=== PATIENT | female | born 1945 | race Caucasian/White ===

== ENCOUNTER 2016-11-02 12:31 | Inpatient (IN) ==
--- NOTE | 2016-11-02 19:50 | Internal Med History&Physical ---
Date of Encounter: 11/02/16 Time of Encounter: 20:36 Assessment and Plan (1) Physical deconditioning Current visit: Yes Status: Acute she is here for pt/ot/rt after her fall and left hip fracture (2) Atrial fibrillation with RVR Current visit: No Status: Acute she developed afib with rvr at [place] [facility]. she was put on a cardizem gtt and transitioned over to po cardizem. her rate has been controlled since. she saw cardio there who recommended asa for anticoagulation and out pt cardio f/u. (3) Intertrochanteric fracture of left hip Current visit: No Status: Acute she had an orif of the fracture on 10.29. she is here for rehab. hydrocodone for pain. she takes this at home for chronic pain Qualifiers: Encounter type: initial encounter Fracture type: closed Qualified Code(s) : S72.142A - Displaced intertrochanteric fracture of left femur, initial encounter for closed fracture (4) Hypertension Current visit: No Status: Chronic her home lisinopril was held when the cardizem was started. will continue to watch bp Qualifiers: Hypertension type: essential hypertension Qualified Code(s): I10 - Essential (primary) hypertension (5) Vitamin D deficiency Current visit: No Status: Chronic will continue home medication (6) Effusion, left knee Current visit: Yes Status: Acute she had an xray on 10/27 that showed narrowing of the medial compartment. discussed she is not a candidate for any intervention beyond rehab with the hip fracture. she could not tolerate an mri. will ice and do rehab for now. will consider further intervention as her hip heals. Internal Medicine - H&P: HPI Chief complaint: here for rehab Admitted From: Hospital to Hospital Transfer History of present illness: Ms. Marte is a 71 year old female who had a hip fracture after a fall 10/28/16. her dog got caught in the light cord and she got up too fast to help and fell. on 10/29/16 she had orif of the left hip intratrochanteric fracture. she also has left knee pain with swelling of the joint. post op she did develop a fib with rvr. she was placed on a cardizem gtt and transitioned over to po cardizem. cardiology was consulted and they recommended asa for anticoagulation with out pt cardio follow up. she has htn and the lisinopril that she was on prior was held after the cardizem was started. she felt her heart going fast when she had the a fib with rvr but has not felt that since she has a hx of chronic pain for which she is on hydrocodone 5/325 every 8 hours prior to the fracture. she had some constipation and had a stool softner today that helped. she has been dizzy in the past but was not dizzy with this fall. Past Med Surg Social Fam HX - Past Medical History Medical history: atrial fibrillation (new onset post op), GERD, hypertension, osteoporosis, other (vitamin d def) Psychiatric history: no psych history - Past Surgical History Surgical History: , orthopedic, other (lef hip orif 10/29/16, left tib fib orif 08/2013) - Social History Smoking Status: Never smoker Smokeless Tobacco Status: No Alcohol use: none Drug use: none - Family History Father Living Status: Cause of : cad Hx Family Cardiac Disorders: Yes (cad) Hx Family Respiratory Disorders: No Hx Family Cancer: Yes (throat) Hx Family GI Disorders: No Hx Family Endocrine Disorder: No Hx Family Neuromuscular Disorders: No Hx Family Neurologic Disorders: No Hx Family HEENT Disorders: No Hx Family Autoimmune Disorders: No Mother Hx Family Endocrine Disorder: Yes (dm2) Brother Hx Family Cancer: Yes (throat) Sister Hx Family Cardiac Disorders: Yes Internal Medicine - H&P: Meds Alendronate Sodium [Fosamax] 70 mg PO MADDEN 10/28/16 [History] Aspirin 81 mg PO DAILY tab.chew 11/01/16 [Rx] Cholecalciferol (D-3) [Vitamin D] 2,000 unit PO DAILY tablet 11/01/16 [Rx] Diltiazem CD (24hr) [Cardizem CD] 120 mg PO DAILY #0 cap.er.24h 11/01/16 [Rx] Docusate [Colace] 100 mg PO BID PRN #0 capsule 11/01/16 [Rx] Famotidine [Pepcid] 20 mg PO BID tablet 11/01/16 [Rx] HYDROcodone/Acet 5/325 mg [[place] 5-325 mg] 1 tab PO Q4HR PRN #30 tablet [Rx] Allergies codeine Adverse Reaction (Verified 10/28/16 11:28) Vomiting All Systems PM: A 10-system review of systems was performed and is negative for pertinent findings except as documented above in the HPI. - Constitutional Constitutional: falls, no chills, no fatigue, no fever(s) - EENT Eyes: no change in vision - Cardiovascular Cardiovascular ROS IM: other (racing wiht the afib, none since), no chest pain, no lightheadedness - Respiratory Respiratory: cough (just after surgery none since), no dyspnea, no wheezing - Gastrointestinal Gastrointestinal: constipation (did that was helped with the stool softner), no abdominal pain, no hematochezia, no loose stools, no melena, no nausea, no vomiting - Musculoskeletal Musculoskeletal ROS IM: joint swelling (in her left knee since her fall), tingling (of her left leg chronic since hr tib/fib fracture in 2012) - Integumentary Integumentary IM: no pruritus, no rash - Neurological Neurological ROS: no dizziness, no focal weakness - Constitutional Vitals: Temp BP Pulse Ox 98.4 F 123/71 94 L 11/02/16 16:46 11/02/16 16:46 11/02/16 16:46 General appearance: Present: A&O X 3, pleasant, no acute distress, answers questions appropriately - Head Head exam: Present: atraumatic, normocephalic - Neck Neck exam general surgery: Present: full ROM, supple, trachea midline. Absent: lymphadenopathy - Respiratory Respiratory exam: Present: CTAB - Cardiovascular Cardiovascular exam: Present: RRR, systolic murmur - GI/Abdominal GI/Abdominal exam: Present: normal bowel sounds, soft, no peritoneal signs. Absent: guarding, mass, tenderness - Extremities Exam Extremities exam: Present: normal capillary refill, warm. Absent: pedal edema - Expanded Lower Extremities Exam Knee exam: Present: ecchymosis, effusion - Incison Incision: Present: clean and dry (minimal d/c on the dressing) - Skin Skin exam: Present: dry, warm. Absent: rash - VTE Documentation of Mechanical Device: Graduated compression elastic hosiery
[2016-11-02] MEDS: Famotidine 20 MG TABLET PO SCH (20:57)
[2016-11-02] MEDS: *HR* HYDROcodone/Acet 5/325 mg TABLET PO PRN (20:57)
[2016-11-02 23:40] LABS: Bilirubin,Urine Negative (Negative); Blood,Urine Moderate (Negative); Clarity,Urine Cloudy (Clear); Color,Urine Yellow (Yellow); Glucose,Urine (UA) Normal (Normal); Ketones,Urine Negative (Negative); Leukocyte Esterase,Urine Trace (Negative); Nitrite,Urine Negative (Negative); Protein,Urine Negative (Neg-Trace); Specific Gravity,Urine 1.015 (1.010-1.025); Urobilinogen,Urine Normal (Normal)
[2016-11-02 23:46] LABS: Bacteria,Urine Many per hpf (None-Few); Squamous Epithelial Cell,Urine Few per lpf (None-Few); WBC,Urine 15-30 per hpf (0-3)
[2016-11-03] MEDS: *HR* Enoxaparin 40 MG/0.4 ML SYRINGE SQ SCH (05:30)
[2016-11-03] MEDS: *HR* HYDROcodone/Acet 5/325 mg TABLET PO PRN ×3 (05:36→22:05)
[2016-11-03 05:41] LABS: Basophils % 0.6 %; Eosinophils # 0.3 K/mcL (0.0-0.6); Eosinophils % 3.9 %; Hematocrit 32.9 % (35.3-44.9); Hemoglobin 10.6 g/dL (11.5-15.4); Immature Granulocytes % 0.3 % (0-4); Lymphocytes # 1.6 K/mcL (0.6-4.6); Lymphocytes % 23.2 %; Mean Corpuscular HGB Conc 32.2 g/dL (31.6-35.5); Mean Corpuscular Hemoglobin 25.9 pg (28.0-33.3); Mean Corpuscular Volume 80.4 fL (83.0-100.0); Mean Platelet Volume 9.2 fL (9.4-12.4); Monocytes # 0.5 K/mcL (0.0-1.3); Monocytes % 6.9 %; Neutrophils # 4.5 K/mcL (1.6-8.9); Platelet Count 327 K/mcL (140-400); Red Blood Count 4.09 M/mcL (3.82-4.97); Red Cell Distribution Width 13.7 % (11.5-14.5); Segmented Neutrophils % 65.1 %
[2016-11-03 05:45] LABS: INR 1.1; Prothrombin Time 11.6 Seconds (9.4-12.1)
[2016-11-03 05:48] LABS: Activated Partial Thrombo Time 26.3 Seconds (26.0-36.0)
[2016-11-03 05:55] LABS: BUN/Creatinine Ratio 15 (6-26); Blood Urea Nitrogen 9 mg/dL (7-20); Carbon Dioxide 25 mEq/L (19-29); Chloride 106 mEq/L (98-109); Glucose 99 mg/dL (70-99); Osmolality,Calculated 291 (280-300); Potassium 3.8 mEq/L (3.5-4.5); Sodium 141 mEq/L (136-145); eGFR For African Americans > 60 (> 60); eGFR For Non-African Americans > 60 (> 60)
[2016-11-03] MEDS: Diltiazem CD (24hr) 120 MG CAPSULE PO SCH (08:52)
[2016-11-03] MEDS: Famotidine 20 MG TABLET PO SCH ×2 (08:53→21:58)
[2016-11-03] MEDS ORDERED: Cholecalciferol (D-3) 1,000 UNIT TABLET PO SCH (09:00)
--- NOTE | 2016-11-03 15:49 | Physcial Medicine-Consult Note ---
Date of Encounter: 11/03/16 Time of Encounter: 15:45 Physical Medicine - AP (1) Intertrochanteric fracture of left hip Status: Acute Assessment and plan: 1. Left hip fracture: patient currently has barriers of fatigue and pain. Her primary barrier is her fatigue and pain. Patient will continue with PT/OT/ TR as tolerated to address gait, safety and ADLs. 2. Constipation: recommend suppository. 3. DVT prophylaxis: continue lovenox Code(s): S72.142A - Displaced intertrochanteric fracture of left femur, initial encounter for closed fracture SNOMED Code(s): 202739182 Physical Medicine - HPI - Data of Consult Consult date: 11/03/16 Requesting Physician: Alyse Inman, Primary Care Provider: Alyse Inman, - Consult Narrative Reason for consult: S/P left hip fracture History of present illness: Ms. Marte is a 71 year old female who sustained a fall with a resultant left intertrochanteric hip fracture. She is s/p IM nailing to the hip. She was stabilized and transferred for inpatient rehab. CC: Alyse Inman, Past Med Surg Social Fam HX - Past Medical History Medical history: atrial fibrillation (new onset post op), GERD, hypertension, osteoporosis, other (vitamin d def) Psychiatric history: no psych history - Past Surgical History Surgical History: , orthopedic, other (lef hip orif 10/29/16, left tib fib orif 08/2013) - Social History Smoking Status: Never smoker Smokeless Tobacco Status: No Alcohol use: none Drug use: none - Family History Father Living Status: Cause of : cad Hx Family Cardiac Disorders: Yes (cad) Hx Family Respiratory Disorders: No Hx Family Cancer: Yes (throat) Hx Family GI Disorders: No Hx Family Endocrine Disorder: No Hx Family Neuromuscular Disorders: No Hx Family Neurologic Disorders: No Hx Family HEENT Disorders: No Hx Family Autoimmune Disorders: No Mother Hx Family Endocrine Disorder: Yes (dm2) Brother Hx Family Cancer: Yes (throat) Sister Hx Family Cardiac Disorders: Yes Medications and Allergies Alendronate Sodium [Fosamax] 70 mg PO MADDEN 10/28/16 [History] Aspirin 81 mg PO DAILY tab.chew 11/01/16 [Rx] Cholecalciferol (D-3) [Vitamin D] 2,000 unit PO DAILY tablet 11/01/16 [Rx] Diltiazem CD (24hr) [Cardizem CD] 120 mg PO DAILY #0 cap.er.24h 11/01/16 [Rx] Docusate [Colace] 100 mg PO BID PRN #0 capsule 11/01/16 [Rx] Famotidine [Pepcid] 20 mg PO BID tablet 11/01/16 [Rx] HYDROcodone/Acet 5/325 mg [Christopher 5-325 mg] 1 tab PO Q4HR PRN #30 tablet [Rx] Allergies codeine Adverse Reaction (Verified 10/28/16 11:28) Vomiting - Constitutional Constitutional: Present: anorexia, fatigue - Cardiovascular Cardiovascular: Absent: chest pain, dyspnea - Respiratory Respiratory: Absent: dyspnea - Gastrointestinal Gastrointestinal: Present: abdominal pain, constipation - Genitourinary Genitourinary: Absent: urinary frequency, urinary incontinence - Musculoskeletal Musculoskeletal: Present: arthralgias Physical Medicine - Exam - Constitutional Vitals: Temp Pulse Resp BP Pulse Ox 98.5 F 90 16 137/76 98 11/03/16 11:43 11/03/16 12:57 11/03/16 12:57 11/03/16 12:57 11/03/16 12:57 - Head Head exam: Present: atraumatic, normal inspection - Respiratory Respiratory exam: Present: CTAB - Cardiovascular Cardiovascular exam: Present: RRR - GI/Abdominal GI/Abdominal exam: Present: normal bowel sounds, soft. Absent: tenderness - Extremities Exam Extremities exam: Absent: calf tenderness (left hip incision dressed and dry) Physical Medicine - Results - Labs CBC & Chem 7: 11/03/16 05:15 11/03/16 05:15 Labs: Short CBC 11/03/16 Range/Units 05:15 WBC 6.9 (4.3-11.1) K/mcL Hgb 10.6 L (11.5-15.4) g/dL Hct 32.9 L (35.3-44.9) % Plt Count 327 (140-400) K/mcL Neutrophils # 4.5 (1.6-8.9) K/mcL BMP 11/03/16 05:15 Sodium 141 Potassium 3.8 Chloride 106 Carbon Dioxide 25 BUN 9 Creatinine 0.62 Glucose 99 Calcium 9.0 Urine 11/02/16 Range/Units 23:00 Urine Color Yellow (Yellow) Urine Clarity Cloudy A (Clear) Urine pH 7.0 (5.0-8.0) pH Units Ur Specific [place] 1.015 (1.010-1.025) Urine Protein Negative (Neg-Trace) mg/dL Urine Glucose (UA) Normal (Normal) mg/dL Consult Discharge Plan - Plan Referrals: Alyse Inman MD [Primary Care Provider] -
[2016-11-04] MEDS: *HR* HYDROcodone/Acet 5/325 mg TABLET PO PRN ×4 (05:45→23:06)
[2016-11-04] MEDS: *HR* Enoxaparin 40 MG/0.4 ML SYRINGE SQ SCH (05:46)
[2016-11-04] MEDS: Famotidine 20 MG TABLET PO SCH ×2 (09:31→23:06)
[2016-11-04] MEDS: Diltiazem CD (24hr) 120 MG CAPSULE PO SCH (09:31)
--- NOTE | 2016-11-04 11:16 | Internal Med Progress Note ---
Date of Encounter: 11/04/16 Time of Encounter: 08:25 - Assessment and plan (1) Physical deconditioning Current Visit: Yes Status: Acute Assessment and plan: she is here for pt ot, rt, d/c when she meets their goals. she lives with 17 yo grandson (2) Atrial fibrillation with RVR Current Visit: No Status: Acute Assessment and plan: has been rate controlled on cardizem. will have her follow with cardio as outpt. cardio at [facility] recommended asa for anticoagulation (3) Intertrochanteric fracture of left hip Current Visit: No Status: Acute Assessment and plan: here for rehab Qualifiers: Qualified Code(s): S72.142A - Displaced intertrochanteric fracture of left femur, initial encounter for closed fracture (4) Hypertension Current Visit: No Status: Chronic Assessment and plan: stable continue medication. Qualifiers: Qualified Code(s): I10 - Essential (primary) hypertension (5) Vitamin D deficiency Current Visit: No Status: Chronic Assessment and plan: continue home medication (6) Effusion, left knee Current Visit: Yes Status: Acute Assessment and plan: she cannot tolerate an mri. will do rehab and ice and ivett hose. her xray was negative. - Subjective Interval history: her left knee bothers her more than the pain in the left hip. it still has an effusion. she was nauseated yesterday. none today, no emesis. bowels are ok. no sob, no cp, no palp no dizzy. no dysuria. she does have a gram neg gianfranco uti - Constitutional Vitals: Temp Pulse Resp BP Pulse Ox 97.5 F L 99 16 134/73 96 11/04/16 07:35 11/04/16 07:35 11/04/16 07:35 11/04/16 07:35 11/04/16 07:35 General appearance: Present: A&O X 3, pleasant, no acute distress, answers questions appropriately - Head Head exam: Present: atraumatic, normocephalic - Neck Neck exam general surgery: Present: supple, trachea midline. Absent: lymphadenopathy, tenderness - Respiratory Respiratory exam: Present: CTAB - Cardiovascular Cardiovascular exam: Present: RRR, systolic murmur - GI/Abdominal GI/Abdominal exam: Present: normal bowel sounds, soft, no peritoneal signs. Absent: distended, guarding, tenderness - Extremities Exam Extremities exam: Present: normal capillary refill (ivett hose), warm. Absent: pedal edema - Expanded Lower Extremities Exam Knee exam: Present: ecchymosis (on the left knee), effusion (on the left still) - Incison Incision: Present: clean and dry (minimal spots on the dressing. ) - Skin Skin exam: Present: dry, warm. Absent: rash Internal Medicine: Result - Labs CBC & Chem 7: 11/03/16 05:15 11/03/16 05:15 - ABG Interpretation ABG results: PT/INR, D-dimer PT 11.6 Seconds (9.4-12.1) 11/03/16 05:15 - VTE Documentation of Mechanical Device: Graduated compression elastic hosiery Consult Discharge Plan - Plan Referrals: Alyse Inman MD [Primary Care Provider] -
[2016-11-05] MEDS: *HR* Enoxaparin 40 MG/0.4 ML SYRINGE SQ SCH (06:11)
[2016-11-05] MEDS: *HR* HYDROcodone/Acet 5/325 mg TABLET PO PRN ×3 (06:11→18:27)
--- NOTE | 2016-11-05 08:28 | Internal Med Progress Note ---
Date of Encounter: 11/05/16 Time of Encounter: 08:28 - Assessment and plan (1) Physical deconditioning Current Visit: Yes Status: Acute Assessment and plan: she is here for pt ot, rt, d/c when she meets their goals. she lives with 17 yo grandson . she is getting sore from the walker (2) Atrial fibrillation with RVR Current Visit: No Status: Acute Assessment and plan: has been rate controlled on cardizem. will have her follow with cardio as outpt. cardio at [facility] recommended asa for anticoagulation (3) Intertrochanteric fracture of left hip Current Visit: No Status: Inactive Assessment and plan: here for rehab Qualifiers: Encounter type: initial encounter Fracture type: closed Qualified Code(s) : S72.142A - Displaced intertrochanteric fracture of left femur, initial encounter for closed fracture (4) Hypertension Current Visit: No Status: Chronic Assessment and plan: stable continue medication. Qualifiers: Hypertension type: essential hypertension Qualified Code(s): I10 - Essential (primary) hypertension (5) Vitamin D deficiency Current Visit: No Status: Chronic Assessment and plan: continue home medication (6) Effusion, left knee Current Visit: Yes Status: Acute Assessment and plan: she cannot tolerate an mri. will do rehab and ice and ivett hose. her xray was negative. it is better with the ivett hose (7) UTI (urinary tract infection) Current Visit: Yes Status: Acute Assessment and plan: on levaquin. e coli sensitive to it Qualifiers: Urinary tract infection type: acute cystitis Hematuria presence: with hematuria Qualified Code(s): N30.01 - Acute cystitis with hematuria - Subjective Interval history: her left knee bothers her more than the pain in the left hip. it still has an effusion. the pain is better with the thigh high ivett hose, no emesis. bowels are ok. no sob, no cp, no palp no dizzy. no dysuria. she does have a gram neg gianfranco uti, e coli. on levaquin. her arms and chest are getting sore from the walker. - Constitutional Vitals: Temp Pulse Resp BP Pulse Ox 98.6 F 84 16 118/74 95 11/05/16 07:00 11/05/16 07:00 11/05/16 07:00 11/05/16 07:00 11/05/16 07:00 General appearance: Present: A&O X 3, pleasant, no acute distress, answers questions appropriately - Head Head exam: Present: atraumatic, normocephalic - Neck Neck exam general surgery: Present: normal inspection, trachea midline. Absent : lymphadenopathy, tenderness - Respiratory Respiratory exam: Present: CTAB - Cardiovascular Cardiovascular exam: Present: RRR, +S1, +S2 - GI/Abdominal GI/Abdominal exam: Present: normal bowel sounds, soft, no peritoneal signs. Absent: distended, guarding, rebound, tenderness - Extremities Exam Extremities exam: Present: warm. Absent: pedal edema (ivett hose bilateral) - Incison Incision: Present: clean and dry (no change in the dressing drainage) - Skin Skin exam: Present: dry, warm. Absent: rash Internal Medicine: Result - Labs CBC & Chem 7: 11/03/16 05:15 11/03/16 05:15 - ABG Interpretation ABG results: PT/INR, D-dimer PT 11.6 Seconds (9.4-12.1) 11/03/16 05:15 - VTE Documentation of Mechanical Device: Graduated compression elastic hosiery Consult Discharge Plan - Plan Referrals: Alyse Inman MD [Primary Care Provider] -
[2016-11-05] MEDS: Diltiazem CD (24hr) 120 MG CAPSULE PO SCH (08:47)
[2016-11-05] MEDS: Famotidine 20 MG TABLET PO SCH ×2 (08:47→21:42)
[2016-11-06] MEDS: *HR* HYDROcodone/Acet 5/325 mg TABLET PO PRN ×4 (00:47→17:19)
[2016-11-06] MEDS: *HR* Enoxaparin 40 MG/0.4 ML SYRINGE SQ SCH (06:01)
[2016-11-06] MEDS: Famotidine 20 MG TABLET PO SCH ×2 (09:33→21:56)
[2016-11-06] MEDS: Diltiazem CD (24hr) 120 MG CAPSULE PO SCH (09:33)
--- NOTE | 2016-11-06 10:45 | Internal Med Progress Note ---
Date of Encounter: 11/06/16 Time of Encounter: 10:30 - Assessment and plan (1) Intertrochanteric fracture of left hip Current Visit: Yes Status: Acute Assessment and plan: At present doing well postop. Continue ERIC hose. Qualifiers: Encounter type: subsequent encounter Fracture type: closed Fracture healing: with routine healing Qualified Code(s): S72.142D - Displaced intertrochanteric fracture of left femur, subsequent encounter for closed fracture with routine healing (2) Effusion, left knee Current Visit: Yes Status: Acute Assessment and plan: Slowly improving. (3) Physical deconditioning Current Visit: Yes Status: Acute Assessment and plan: She is making slow progress with rehabilitation. She's had trauma at multiple sites with has limited her progress some. (4) UTI (urinary tract infection) Current Visit: Yes Status: Acute Assessment and plan: She grew Escherichia coli. Continue Levaquin. Qualifiers: Urinary tract infection type: acute cystitis Hematuria presence: with hematuria Qualified Code(s): N30.01 - Acute cystitis with hematuria (5) Atrial fibrillation with RVR Current Visit: No Status: Acute Assessment and plan: Rate is controlled at 81 bpm this morning. Rhythm seems regular today to my exam. She is not on telemetry and it does not seem to be indicated. (6) Hypertension Current Visit: No Status: Chronic Assessment and plan: At goal with blood pressure 111/66. Qualifiers: Hypertension type: essential hypertension Qualified Code(s): I10 - Essential (primary) hypertension - Time Spent With Patient 25 - 35 minutes - Subjective Interval history: She denies new complaints today. She continues to have chest soreness from her fall it interferes with her using the walker. She feels this is slowly improving. She denies shortness of breath, palpitations or chest discomfort. She continues to have left knee pain from her fall. She denies any discomfort on the left hip area where she had her surgery. - Constitutional Vitals: Temp Pulse Resp BP Pulse Ox 97.7 F 81 14 111/66 96 11/06/16 06:17 11/06/16 06:17 11/06/16 06:17 11/06/16 06:17 11/06/16 06:17 General appearance: Present: cooperative, A&O X 3, pleasant, no acute distress, answers questions appropriately - Respiratory Respiratory exam: Present: CTAB. Absent: accessory muscle use, rales, respiratory distress, rhonchi, wheezes - Cardiovascular Cardiovascular exam: Present: RRR, +S1, +S2, systolic murmur. Absent: diastolic murmur, gallop, rubs Additional comments: 6 systolic murmur S2 heard at the left lower sternal border. Today in the sitting position it is not loud. - Extremities Exam Extremities exam: Present: warm. Absent: calf tenderness, cyanotic, pedal edema Additional comments: She has ERIC hose it goes above her left knee and she says that's helped her discomfort. The therapist place some support tape over the patella she also feels that has decreased her discomfort. There is no warmth, redness or tenderness at this time. - Skin Skin exam: Present: dry, intact Additional comments: Dressing over the left lateral hip is dry and intact. There is no surrounding redness and no tenderness or fluctuance. Internal Medicine: Result - Labs CBC & Chem 7: 11/03/16 05:15 11/03/16 05:15 - ABG Interpretation ABG results: PT/INR, D-dimer PT 11.6 Seconds (9.4-12.1) 11/03/16 05:15 - VTE Documentation of Mechanical Device: Graduated compression elastic hosiery Consult Discharge Plan - Plan Referrals: Alyse Inman MD [Primary Care Provider] -
[2016-11-07] MEDS: *HR* HYDROcodone/Acet 5/325 mg TABLET PO PRN ×3 (00:18→19:29)
[2016-11-07] MEDS: *HR* Enoxaparin 40 MG/0.4 ML SYRINGE SQ SCH (06:19)
[2016-11-07] MEDS: Diltiazem CD (24hr) 120 MG CAPSULE PO SCH (08:25)
[2016-11-07] MEDS: Famotidine 20 MG TABLET PO SCH ×2 (08:25→19:28)
[2016-11-07] MEDS ORDERED: CHOLECALCIFEROL 50000 UNIT PO SCH (09:00)
--- NOTE | 2016-11-07 12:42 | Internal Med Progress Note ---
Date of Encounter: 11/07/16 Time of Encounter: 12:30 - Assessment and plan (1) Intertrochanteric fracture of left hip Current Visit: Yes Status: Acute Assessment and plan: Her incision looks good. She has no pain at the fracture site. Qualifiers: Encounter type: subsequent encounter Fracture type: closed Fracture healing: with routine healing Qualified Code(s): S72.142D - Displaced intertrochanteric fracture of left femur, subsequent encounter for closed fracture with routine healing (2) Effusion, left knee Current Visit: Yes Status: Acute Assessment and plan: Continued knee pain responding as above. She will have orthopedic follow-up for this. (3) Physical deconditioning Current Visit: Yes Status: Acute Assessment and plan: She continues with rehabilitation. Her chest soreness is limiting her walker use. To my exam today there is no bruising or other abnormality to the chest wall. (4) UTI (urinary tract infection) Current Visit: Yes Status: Acute Assessment and plan: She grew Escherichia coli. Continue Levaquin. Qualifiers: Urinary tract infection type: acute cystitis Hematuria presence: with hematuria Qualified Code(s): N30.01 - Acute cystitis with hematuria (5) Atrial fibrillation with RVR Current Visit: No Status: Acute Assessment and plan: Rate is controlled. (6) Hypertension Current Visit: No Status: Chronic Assessment and plan: Blood pressure is at goal at 115/61. Pulse is 85. Qualifiers: Hypertension type: essential hypertension Qualified Code(s): I10 - Essential (primary) hypertension - Time Spent With Patient 25 - 35 minutes - Subjective Interval history: She denies new complaints. She gets continued chest soreness when she uses her walker. She denies any trauma to the chest area with her fall, she says "I landed on my hip". She tells me about 3 years ago she broke her leg and could not her weight on it for 6 months, it was 2 years before she can get off the walker. She denies shortness of breath, palpitations or chest discomfort. She continues to have left knee pain which is relieved nicely with application of ice. She again denies any discomfort on the left hip area where she had her surgery. - Constitutional Vitals: Temp Pulse Resp BP Pulse Ox 98.1 F 85 18 115/61 95 11/07/16 06:50 11/07/16 06:50 11/07/16 06:50 11/07/16 06:50 11/07/16 06:50 General appearance: Present: cooperative, A&O X 3, pleasant, no acute distress, answers questions appropriately Exam: She is awake, alert, oriented and pleasant. - Respiratory Respiratory exam: Present: CTAB. Absent: accessory muscle use, rales, rhonchi, wheezes - Cardiovascular Cardiovascular exam: Present: RRR, +S1, +S2. Absent: diastolic murmur, gallop, rubs, systolic murmur - Extremities Exam Extremities exam: Present: warm, radial pulses palpable and symetrical. Absent : calf tenderness, cyanotic, pedal edema Additional comments: The dressing on her left greater trochanter is still clean and dry. There is no surrounding redness or inflammation. There is no swelling. She's applying ice to her left knee. There is no calf tenderness bilaterally and no swelling of the lower extremities. Internal Medicine: Result - Labs CBC & Chem 7: 11/03/16 05:15 11/03/16 05:15 - ABG Interpretation ABG results: PT/INR, D-dimer PT 11.6 Seconds (9.4-12.1) 11/03/16 05:15 - VTE Documentation of Mechanical Device: Graduated compression elastic hosiery Consult Discharge Plan - Plan Referrals: Alyse Inman MD [Primary Care Provider] -
[2016-11-08] MEDS: *HR* Enoxaparin 40 MG/0.4 ML SYRINGE SQ SCH (06:40)
[2016-11-08] MEDS: *HR* HYDROcodone/Acet 5/325 mg TABLET PO PRN ×3 (06:40→18:11)
[2016-11-08] MEDS: Famotidine 20 MG TABLET PO SCH ×2 (08:28→20:30)
[2016-11-08] MEDS: Diltiazem CD (24hr) 120 MG CAPSULE PO SCH (08:29)
[2016-11-09] MEDS: *HR* HYDROcodone/Acet 5/325 mg TABLET PO PRN ×3 (04:19→20:20)
[2016-11-09] MEDS: *HR* Enoxaparin 40 MG/0.4 ML SYRINGE SQ SCH (04:19)
[2016-11-09] MEDS: Diltiazem CD (24hr) 120 MG CAPSULE PO SCH (08:37)
[2016-11-09] MEDS: Famotidine 20 MG TABLET PO SCH ×2 (08:37→20:20)
--- NOTE | 2016-11-09 10:47 | Internal Med Progress Note ---
Date of Encounter: 11/09/16 Time of Encounter: 10:47 - Assessment and plan (1) Physical deconditioning Current Visit: Yes Status: Acute Assessment and plan: She continues with rehabilitation. Her chest soreness is limiting her walker use. will add ibuprofen to help with the muscle soreness (2) Atrial fibrillation with RVR Current Visit: No Status: Acute Assessment and plan: Rate is controlled.on asa for anticoag per cardio (3) Intertrochanteric fracture of left hip Current Visit: No Status: Inactive Assessment and plan: here for rehab Qualifiers: Encounter type: initial encounter Fracture type: closed Qualified Code(s) : S72.142A - Displaced intertrochanteric fracture of left femur, initial encounter for closed fracture (4) Hypertension Current Visit: No Status: Chronic Assessment and plan: stable on current medication Qualifiers: Hypertension type: essential hypertension Qualified Code(s): I10 - Essential (primary) hypertension (5) Vitamin D deficiency Current Visit: No Status: Chronic Assessment and plan: continue home medication (6) Effusion, left knee Current Visit: Yes Status: Acute Assessment and plan: Continued knee pain responding as above. She will have orthopedic follow-up for this as an outpatient (7) UTI (urinary tract infection) Current Visit: Yes Status: Acute Assessment and plan: finished medication Qualifiers: Urinary tract infection type: acute cystitis Hematuria presence: with hematuria Qualified Code(s): N30.01 - Acute cystitis with hematuria - Subjective Interval history: her left knee bothers her more than the pain in the left hip. it still has an effusion. the pain is better with the thigh high ivett hose, no emesis. bowels are ok. no sob, no cp, no palp no dizzy. no dysuria. her arms and chest are getting sore from the walker. it is limiting her progress. she used to take ibuprofen at home. will try this to see if it helps her arm and chest soreness. - Constitutional Vitals: Temp Pulse Resp BP Pulse Ox 98.0 F 84 16 110/69 94 L 11/09/16 07:05 11/09/16 07:05 11/09/16 07:05 11/09/16 07:05 11/09/16 07:05 General appearance: Present: cooperative, A&O X 3, pleasant, no acute distress, answers questions appropriately - Head Head exam: Present: atraumatic, normocephalic - Neck Neck exam general surgery: Present: supple, trachea midline. Absent: lymphadenopathy - Respiratory Respiratory exam: Present: CTAB - Cardiovascular Cardiovascular exam: Present: RRR, +S1, +S2 - GI/Abdominal GI/Abdominal exam: Present: normal bowel sounds, soft. Absent: guarding, mass, no peritoneal signs - Extremities Exam Extremities exam: Present: normal capillary refill (ivett hose on left knee with decreased effusion), warm. Absent: pedal edema - Incison Incision: Present: clean and dry (no change in the optifoam dressing), intact - Skin Skin exam: Present: dry, warm. Absent: rash Internal Medicine: Result - Labs CBC & Chem 7: 11/03/16 05:15 11/03/16 05:15 - ABG Interpretation ABG results: PT/INR, D-dimer PT 11.6 Seconds (9.4-12.1) 11/03/16 05:15 - VTE Documentation of Mechanical Device: Graduated compression elastic hosiery Consult Discharge Plan - Plan Referrals: Alyse Inman MD [Primary Care Provider] -
[2016-11-09] MEDS: Ibuprofen 600 MG TABLET PO SCH ×2 (12:34→17:51)
[2016-11-10 05:41] LABS: Basophils # 0.1 K/mcL (0.0-0.2); Eosinophils # 0.3 K/mcL (0.0-0.6); Eosinophils % 4.4 %; Hematocrit 32.4 % (35.3-44.9); Hemoglobin 10.6 g/dL (11.5-15.4); Immature Granulocytes % 0.2 % (0-4); Lymphocytes # 2.2 K/mcL (0.6-4.6); Lymphocytes % 37.9 %; Mean Corpuscular HGB Conc 32.7 g/dL (31.6-35.5); Mean Corpuscular Hemoglobin 26.8 pg (28.0-33.3); Mean Corpuscular Volume 81.8 fL (83.0-100.0); Mean Platelet Volume 8.7 fL (9.4-12.4); Monocytes # 0.5 K/mcL (0.0-1.3); Monocytes % 8.7 %; Neutrophils # 2.7 K/mcL (1.6-8.9); Platelet Count 505 K/mcL (140-400); Red Blood Count 3.96 M/mcL (3.82-4.97); Red Cell Distribution Width 14.7 % (11.5-14.5); Segmented Neutrophils % 47.8 %
[2016-11-10 05:51] LABS: BUN/Creatinine Ratio 17 (6-26); Blood Urea Nitrogen 11 mg/dL (7-20); Calcium 8.6 mg/dL (8.6-10.8); Carbon Dioxide 24 mEq/L (19-29); Chloride 110 mEq/L (98-109); Glucose 91 mg/dL (70-99); Osmolality,Calculated 289 (280-300); Potassium 3.9 mEq/L (3.5-4.5); Sodium 140 mEq/L (136-145); eGFR For African Americans > 60 (> 60); eGFR For Non-African Americans > 60 (> 60)
[2016-11-10] MEDS: Ibuprofen 600 MG TABLET PO SCH ×4 (06:53→17:46)
[2016-11-10] MEDS: *HR* Enoxaparin 40 MG/0.4 ML SYRINGE SQ SCH (06:53)
[2016-11-10] MEDS: Diltiazem CD (24hr) 120 MG CAPSULE PO SCH (08:00)
[2016-11-10] MEDS: Famotidine 20 MG TABLET PO SCH ×2 (08:00→21:05)
[2016-11-10] MEDS: *HR* HYDROcodone/Acet 5/325 mg TABLET PO PRN ×2 (11:10→21:05)
--- NOTE | 2016-11-10 13:20 | Internal Med Progress Note ---
Date of Encounter: 11/10/16 Time of Encounter: 14:02 - Assessment and plan (1) Physical deconditioning Current Visit: Yes Status: Acute Assessment and plan: She continues with rehabilitation. Her chest soreness is limiting her walker use. added ibuprofen to help with the muscle soreness. it has helped. will have her bring her wheelchair in from home to practice transfers. she is independent in her room (2) Atrial fibrillation with RVR Current Visit: No Status: Acute Assessment and plan: Rate is controlled.on asa for anticoag per cardio (3) Intertrochanteric fracture of left hip Current Visit: No Status: Inactive Assessment and plan: here for rehab Qualifiers: Encounter type: initial encounter Fracture type: closed Qualified Code(s) : S72.142A - Displaced intertrochanteric fracture of left femur, initial encounter for closed fracture (4) Hypertension Current Visit: No Status: Chronic Assessment and plan: stable on current medication Qualifiers: Hypertension type: essential hypertension Qualified Code(s): I10 - Essential (primary) hypertension (5) Vitamin D deficiency Current Visit: No Status: Chronic Assessment and plan: continue home medication (6) Effusion, left knee Current Visit: Yes Status: Acute Assessment and plan: Continued knee pain responding as above. She will have orthopedic follow-up for this as an outpatient (7) UTI (urinary tract infection) Current Visit: Yes Status: Resolved Assessment and plan: finished medication. levaquin d/c Qualifiers: Urinary tract infection type: acute cystitis Hematuria presence: with hematuria Qualified Code(s): N30.01 - Acute cystitis with hematuria - Subjective Interval history: her left knee bothers her more than the pain in the left hip. it still has an effusion. the pain is better with the thigh high ivett hose, no emesis. but was nauseatd. bowels are ok. no sob, no cp, no palp no dizzy. no dysuria. her arms and chest are getting sore from the walker. it is limiting her progress. the ibuprofen helps it. will. she will go home with the wheelchair. d/c frid - Constitutional Vitals: Temp Pulse Resp BP Pulse Ox 97.8 F 87 16 125/69 98 11/10/16 07:16 11/10/16 07:16 11/10/16 07:16 11/10/16 07:16 11/10/16 07:16 General appearance: Present: cooperative, A&O X 3, pleasant, no acute distress, answers questions appropriately - Head Head exam: Present: atraumatic, normocephalic - Neck Neck exam general surgery: Present: supple, trachea midline - Respiratory Respiratory exam: Present: CTAB - Cardiovascular Cardiovascular exam: Present: RRR, +S1, +S2 - GI/Abdominal GI/Abdominal exam: Present: normal bowel sounds, soft, no peritoneal signs. Absent: distended, rebound - Extremities Exam Extremities exam: Present: normal capillary refill. Absent: pedal edema (still wiht left knee effusion) - Incison Incision: Present: clean and dry, intact (with the dressing no change in the d/ c since admission) Internal Medicine: Result - Labs CBC & Chem 7: 11/10/16 05:30 11/10/16 05:30 Labs: Short CBC 11/10/16 Range/Units 05:30 WBC 5.7 (4.3-11.1) K/mcL Hgb 10.6 L (11.5-15.4) g/dL Hct 32.4 L (35.3-44.9) % Plt Count 505 H (140-400) K/mcL Neutrophils # 2.7 (1.6-8.9) K/mcL BMP 11/10/16 05:30 Sodium 140 Potassium 3.9 Chloride 110 H Carbon Dioxide 24 BUN 11 Creatinine 0.63 Glucose 91 Calcium 8.6 - ABG Interpretation ABG results: PT/INR, D-dimer PT 11.6 Seconds (9.4-12.1) 11/03/16 05:15 - VTE Documentation of Mechanical Device: Graduated compression elastic hosiery Consult Discharge Plan - Plan Referrals: Alyse Inman MD [Primary Care Provider] -
--- NOTE | 2016-11-10 14:06 | Physician Discharge Referral ---
Home Health/Hosp Referral Info Transfer to: Home Health - Diagnosis (1) Physical deconditioning Status: Acute (2) Atrial fibrillation with RVR Status: Acute (3) Intertrochanteric fracture of left hip Status: Inactive (4) Hypertension Status: Chronic (5) Vitamin D deficiency Status: Chronic (6) Effusion, left knee Status: Acute (7) UTI (urinary tract infection) Status: Resolved - Respiratory Orders Smoking Cessation: Smoking cessation has been advised. For more information, call the [place] Tobacco Quit Line at 5-938-QAYG-NOW. - Diet/Nutrition Diet/Nutrition Orders: Cardiac - Activity Activity Orders: Walker - Services Needed Following services are medically necessary services: Nursing, Home Health Aide, Physical Therapy, Occupational Therapy - Transfer Medications Prescriptions: Ibuprofen [Motrin] 600 mg PO Q6HR PRN #90 tablet PRN Reason: Pain Aspirin 325 mg PO BID #60 tablet Diltiazem CD (24hr) [Cardizem CD] 120 mg PO DAILY #30 cap.er.24h Home Medications: Alendronate Sodium [Fosamax] 70 mg PO SHELBY 10/28/16 [History] Aspirin 81 mg PO DAILY tab.chew 11/01/16 [Rx] Docusate [Colace] 100 mg PO BID PRN #0 capsule 11/01/16 [Rx] Famotidine [Pepcid] 20 mg PO BID tablet 11/01/16 [Rx] HYDROcodone/Acet 5/325 mg [Clyo 5-325 mg] 1 tab PO Q4HR PRN #30 tablet [Rx] Aspirin 325 mg PO BID #60 tablet 11/11/16 [Rx] Diltiazem CD (24hr) [Cardizem CD] 120 mg PO DAILY #30 cap.er.24h 11/11/16 [Rx] Ergocalciferol (VITAMIN D2) [Drisdol (50,000 Unit)] 50,000 unit PO Shelby@0900 capsule 11/11/16 [Rx] Ibuprofen [Motrin] 600 mg PO Q6HR PRN #90 tablet 11/11/16 [Rx] Allergies/Adverse Reactions: Allergies codeine Adverse Reaction (Verified 10/28/16 11:28) Vomiting Certification: Further, I certify that my clinical findings support that this patient is homebound (i.e. absences from home require considerable and taxing effort and are for medical reasons or jain services or infrequently or short duration when for other reasons) because: hip fracture needs wheelchair and walker for ambulation Homebound Reason: Patient requires assistance of a person or device to safely leave home (needs walker and wheelchair due the hip fracture and knee pain) Attestation: My signature below is to certify that this patient is under my care and that I, or nurse practitioner, or a physician's enrichment assistant working with me, has a face-to -face encounter with this patient.
--- NOTE | 2016-11-10 15:20 | Physical Med Progress Note ---
Date of Encounter: 11/10/16 Time of Encounter: 15:18 Physical Medicine-PN: Subj Interval history: PMR PCC note Ms. Marte refuses to use a walker. She relies on her wheelchair as her primary means of mobility. Patient is mod I for transfers. She will be discharged to home 11/12 with a walker and wheelchair. Plan for continued PT after discharge. - Constitutional Vitals: Vital Signs Temp Pulse Resp BP Pulse Ox 11/10/16 07:16 97.8 F 87 16 125/69 98 11/09/16 20:10 98.2 F 95 16 147/72 98 Intake and Output 11/09/16 11/10/16 11/10/16 23:59 07:59 15:59 Intake Total 220 / 220 200 / 200 560 / 560 Balance 220 / 220 200 / 200 560 / 560 Intake: Oral 220 / 220 200 / 200 560 / 560 Other: Meal Dinner Breakfast Percent of Meal Consumed 90% 65% # Voids 1 Physical Medicine-PN: Obj Data - Labs CBC & Chem 7: 11/10/16 05:30 11/10/16 05:30 Labs: Laboratory Results - last 24 hr 11/10/16 11/10/16 05:30 05:30 WBC 5.7 RBC 3.96 Hgb 10.6 L Hct 32.4 L MCV 81.8 L MCH 26.8 L MCHC 32.7 RDW 14.7 H Plt Count 505 H MPV 8.7 L Immature Gran % 0.2 Seg Neutrophils % 47.8 Lymphocytes % 37.9 Monocytes % 8.7 Eosinophils % 4.4 Basophils % 1.0 Neutrophils # 2.7 Lymphocytes # 2.2 Monocytes # 0.5 Eosinophils # 0.3 Basophils # 0.1 Sodium 140 Potassium 3.9 Chloride 110 H Carbon Dioxide 24 BUN 11 Creatinine 0.63 Est GFR ( Amer) > 60 Est GFR (Non-Af Amer) > 60 BUN/Creatinine Ratio 17 Glucose 91 Calculated Osmolality 289 Calcium 8.6 - ABG Interpretation ABG results: PT/INR, D-dimer PT 11.6 Seconds (9.4-12.1) 11/03/16 05:15 - VTE Documentation of Mechanical Device: Graduated compression elastic hosiery Consult Discharge Plan - Plan Referrals: Alyse Inman MD [Primary Care Provider] - Mulvany,Chantel L, PAC [Physician Substation Mechanic] - 11/12/16 8:45 am (Additional appointments - November 26, 2016 at 9:15 am and December 10, 2016 at 9:00 am at [facility] with Chantel Goodman) Claudia Talamantes, CUSTODIAL WORKER [Advanced Practice Nurse] - 11/18/16 5:40 pm
[2016-11-11] MEDS: Ibuprofen 600 MG TABLET PO SCH ×5 (04:43→23:18)
[2016-11-11] MEDS: *HR* Enoxaparin 40 MG/0.4 ML SYRINGE SQ SCH (05:45)
[2016-11-11] MEDS: Diltiazem CD (24hr) 120 MG CAPSULE PO SCH (08:48)
[2016-11-11] MEDS: Famotidine 20 MG TABLET PO SCH ×2 (08:48→21:03)
[2016-11-11] MEDS: *HR* HYDROcodone/Acet 5/325 mg TABLET PO PRN ×2 (08:51→21:03)
--- NOTE | 2016-11-11 18:39 | Discharge Summary ---
Date of Encounter: 11/11/16 Time of Encounter: 20:13 - Discharge Diagnosis (1) Physical deconditioning Priority: Primary Status: Acute Comments: She came from [place] after she had had a fall at home and had a left intertrochanteric hip fracture. This was surgically fixed. She was deconditioned and had difficulty ambulating and so she was sent here for rehabilitation. She did progress but had a lot of difficulty using her walker due to arm and chest soreness. She was started on ibuprofen that helped her chest soreness and she did take some steps with a walker but she did not do a lot of walker use while she was here. She plans on using her wheelchair at home. She does ambulate within her room in the wheelchair. At her goals for rehabilitation she was felt safe to be discharged home and she was discharged home in a stable condition she is to follow up with Sarah in the office and she is also to follow-up with orthopedic. Tuesday she is going straight there in the morning from here. (2) Atrial fibrillation with RVR Priority: Secondary Status: Acute Comments: While at [place] postop she had A. fib with RVR. She was started on a Cardizarea and she has remained rate controlled. She will get a follow-up with cardiology as an outpatient. Primary care provider Claudia Talamantes nurse practitioner has been notified and will set up till cardiology referral. (3) Intertrochanteric fracture of left hip Priority: Secondary Status: Inactive Comments: Her pain was controlled on the hydrocodone and ibuprofen. But her knee pain has really been limiting her rehabilitation and her chest soreness with a walker. Qualifiers: Encounter type: initial encounter Fracture type: closed Qualified Code(s) : S72.142A - Displaced intertrochanteric fracture of left femur, initial encounter for closed fracture (4) Hypertension Priority: Secondary Status: Chronic Comments: Been controlled on the Cardizem. Qualifiers: Hypertension type: essential hypertension Qualified Code(s): I10 - Essential (primary) hypertension (5) Vitamin D deficiency Priority: Secondary Status: Chronic Comments: Home Medication was continued (6) Effusion, left knee Priority: Secondary Status: Acute Comments: Her knee pain is actually been giving her more trouble than her hip pain. Her primary care provider Claudia Nevarez has been notified she will get her an outpatient referral for follow-up on this as well. She was not a candidate for intervention at this time so we do not do an MRI or anything past a knee x- ray which was negative for fracture. (7) UTI (urinary tract infection) Priority: Secondary Status: Resolved Comments: sHe grew Escherichia coli that was sensitive to Levaquin she completed a full course of this she came from [place] with this Qualifiers: Urinary tract infection type: acute cystitis Hematuria presence: with hematuria Qualified Code(s): N30.01 - Acute cystitis with hematuria - Discharge Medications Prescriptions: Ibuprofen [Motrin] 600 mg PO Q6HR PRN #90 tablet PRN Reason: Pain Aspirin 325 mg PO BID #60 tablet Diltiazem CD (24hr) [Cardizem CD] 120 mg PO DAILY #30 cap.er.24h Home Medications: Alendronate Sodium [Fosamax] 70 mg PO MADDEN 10/28/16 [History] Aspirin 81 mg PO DAILY tab.chew 11/01/16 [Rx] Docusate [Colace] 100 mg PO BID PRN #0 capsule 11/01/16 [Rx] Famotidine [Pepcid] 20 mg PO BID tablet 11/01/16 [Rx] HYDROcodone/Acet 5/325 mg [[place] 5-325 mg] 1 tab PO Q4HR PRN #30 tablet [Rx] Aspirin 325 mg PO BID #60 tablet 11/11/16 [Rx] Diltiazem CD (24hr) [Cardizem CD] 120 mg PO DAILY #30 cap.er.24h 11/11/16 [Rx] Ergocalciferol (VITAMIN D2) [Drisdol (50,000 Unit)] 50,000 unit PO Madden@0900 capsule 11/11/16 [Rx] Ibuprofen [Motrin] 600 mg PO Q6HR PRN #90 tablet 11/11/16 [Rx] Allergies/Adverse Reactions: Allergies codeine Adverse Reaction (Verified 10/28/16 11:28) Vomiting Date of admission: 11/02/16 15:39 Primary care physician: Alyse Inman, Consults: 11/02/16 16:22 Consult to Occupational Therapy [CONS] Routine Comment: Evaluate, develop and implement POC Consult to Physical Therapy [CONS] Routine Comment: Evaluate, develop and implement POC Consult to Recreational Therapy [CONS] Routine Comment: Evaluate, develop and implement POC Consult to Furnace Cooler [CONS] Routine Reason for SW Consult: d/c planning 11/02/16 16:25 Consult to Physical Medicine/Rehab [CONS] Routine Reason for Consult: therapy admit Call Completed: Yes - Patient Status Disposition: Home Health Service Condition: Good Functional capacity at discharge: wheelchair bound Overall status at discharge: patient is progressing back to baseline - Discharge Instructions Instructions: Atrial Fibrillation (DC), Urinary Tract Infection in Women (DC), Chronic Hypertension (DC) Follow Up With: Alyse Inman MD [Primary Care Provider] - Chantel Goodman PAC [Physician House Builder] - 11/12/16 8:45 am (Additional appointments - November 26, 2016 at 9:15 am and December 10, 2016 at 9:00 am at [facility] with Chantel Goodman) Claudia Talamantes CNP [Advanced Practice Nurse] - 11/18/16 5:40 pm - Diet and Activity Activity: ambulate only with your walker, as per physical therapy Diet: low fat, low cholesterol, low salt diet Interval History: sHe presented from a [facility] after she had a left intertrochanteric hip fracture that required surgical intervention. She came here for rehabilitation for deconditioning. She did progress to the point using a walker but developed a lot of arm and chest soreness which got better with ibuprofen but limited the use of the walker. She was mainly using a wheelchair she was independent ambulation with the wheelchair and walker in her room. Her rehabilitation goals and was considered safe to go home and so she was discharged her home environment with home health care. A lot of left knee pain she had a negative x -ray she was not a surgical candidate at this point time since she had just had surgery on her hip will get her an outpatient referral on this. She did develop A. fib with RVR at [place]. She has a memory controlled on by mouth Cardizem she was anticoagulated on 81 mg of aspirin a day she will be sent home on that as well. She had a UTI when she arrived from [place] was Escherichia coli she completed a full course of by mouth Levaquin. She did not develop a fever from this. hyper tension was stable she was discharged home in a stable condition Hospital course: Ms. Marte is a 71 year old female - Time Spent with Patient Total time spent providing and/or coordinating discharge services: - Constitutional Vitals: Temp Pulse Resp BP Pulse Ox 98.5 F 79 16 117/69 96 11/11/16 07:14 11/11/16 07:14 11/11/16 07:14 11/11/16 07:14 11/11/16 07:14 General appearance: Present: cooperative, A&O X 3, pleasant, no acute distress, answers questions appropriately - Head Head exam: Present: atraumatic, normocephalic - Neck Neck exam general surgery: Present: supple, trachea midline - Respiratory Respiratory exam: Present: CTAB - Cardiovascular Cardiovascular exam: Present: RRR, +S1, +S2 - GI/Abdominal GI/Abdominal exam: Present: normal bowel sounds, soft, no peritoneal signs. Absent: distended, guarding, tenderness - Extremities Exam Extremities exam: Present: joint swelling (but decreased in the left knee), warm. Absent: pedal edema - Incison Incision: Present: clean and dry, intact (dressing no change in d/c since admisssion) - Skin Skin exam: Present: dry, warm. Absent: rash - VTE Documentation of Mechanical Device: Graduated compression elastic hosiery
[2016-11-12] MEDS: Ibuprofen 600 MG TABLET PO SCH (05:47)
[2016-11-12] MEDS: *HR* Enoxaparin 40 MG/0.4 ML SYRINGE SQ SCH (05:47)
[2016-11-12 07:14] VITALS: BP 124/56
== END 2016-11-12 07:48 | disposition home health service (06) | DRG 560 ==
LOC: INPGRE 15:39
PROVIDERS: ADMIT Family Medicine; ATTEND Family Medicine

== ENCOUNTER 2017-01-14 16:38 | Inpatient (IN) ==
[2017-01-14] MEDS ORDERED: Acetaminophen 325 MG TABLET PO PRN (23:00)
[2017-01-15] MEDS: *HR* OxyCODONE Immed Rel 5 MG TABLET PO PRN ×4 (02:35→22:38)
[2017-01-15 03:36] LABS: Bilirubin,Urine Negative (Negative); Blood,Urine Trace-intact (Negative); Clarity,Urine Slightly Cloudy (Clear); Color,Urine Light Yellow (Yellow); Glucose,Urine (UA) Normal (Normal); Ketones,Urine Negative (Negative); Leukocyte Esterase,Urine Negative (Negative); Nitrite,Urine Negative (Negative); Protein,Urine Negative (Neg-Trace); Urobilinogen,Urine Normal (Normal)
[2017-01-15 03:37] LABS: Amorphous Sediment,Urine Few (Few); RBC,Urine 0-3 per hpf (0-3); Squamous Epithelial Cell,Urine Few per lpf (None-Few)
[2017-01-15 05:37] LABS: Basophils % 0.3 %; Eosinophils # 0.3 K/mcL (0.0-0.6); Eosinophils % 3.9 %; Hematocrit 26.3 % (35.3-44.9); Hemoglobin 8.8 g/dL (11.5-15.4); Immature Granulocytes % 0.4 % (0-4); Lymphocytes # 1.7 K/mcL (0.6-4.6); Lymphocytes % 21.5 %; Mean Corpuscular HGB Conc 33.5 g/dL (31.6-35.5); Mean Corpuscular Hemoglobin 27.6 pg (28.0-33.3); Mean Corpuscular Volume 82.4 fL (83.0-100.0); Mean Platelet Volume 9.1 fL (9.4-12.4); Monocytes # 0.7 K/mcL (0.0-1.3); Monocytes % 8.4 %; Neutrophils # 5.2 K/mcL (1.6-8.9); Platelet Count 226 K/mcL (140-400); Red Blood Count 3.19 M/mcL (3.82-4.97); Red Cell Distribution Width 14.4 % (11.5-14.5); Segmented Neutrophils % 65.5 %
[2017-01-15 05:39] LABS: INR 1.2; Prothrombin Time 12.7 Seconds (9.4-12.1)
[2017-01-15 05:41] LABS: Activated Partial Thrombo Time 26.2 Seconds (26.0-36.0)
[2017-01-15] MEDS: APIXABAN 5 MG TABLET PO SCH ×2 (07:58→21:18)
[2017-01-15] MEDS: Ascorbic Acid 500 MG TABLET PO SCH ×2 (07:58→16:58)
[2017-01-15] MEDS: Diltiazem CD (24hr) 180 MG CAPSULE PO SCH (07:58)
[2017-01-15] MEDS: *HR* Amiodarone 200 MG TABLET PO SCH (07:58)
[2017-01-15] MEDS: Aspirin Enteric Coated 81 MG Tablet PO SCH (07:58)
[2017-01-15] MEDS: Multivit/Ca/Min/Fe/FA 1 TAB TABLET PO SCH (07:58)
--- NOTE | 2017-01-15 11:04 | Internal Med History&Physical ---
Date of Encounter: 01/15/17 Time of Encounter: 10:54 Assessment and Plan (1) Status post left hip replacement Current visit: Yes Status: Acute She is here for rehabilitation due to PT OT RT discharge will be when she has met goals to be safe at home prior to coming here she was living at home with her grandson. That is the plans for her post discharge (2) A-fib Current visit: Yes Status: Acute She is on Cardizem 180 once a day and amiodarone. She is anticoagulated with eliquis she is has having some problems with anemia so we may have to reevaluate the by mouth anticoagulation. Currently rate controlled. Qualifiers: Atrial fibrillation type: paroxysmal Qualified Code(s): I48.0 - Paroxysmal atrial fibrillation (3) Acute blood loss anemia Current visit: No Status: Acute She received 2 units packed red blood cells done at [facility] her hemoglobin was 10 yesterday to clinic today what continue to follow this. May need to stop the oral anticoagulation for A. fib. (4) Hypertension Current visit: No Status: Chronic That is currently under control. Qualifiers: Hypertension type: essential hypertension Qualified Code(s): I10 - Essential (primary) hypertension (5) Physical deconditioning Current visit: No Status: Chronic Here for PT OT RT (6) Vitamin D deficiency Current visit: No Status: Chronic We will continue home medication (7) DVT prophylaxis Current visit: Yes Status: Acute eliquis aspirin ambulation Internal Medicine - H&P: HPI Chief complaint: here for rehab Admitted From: Hospital to Hospital Transfer Plans for Post Hospital Care: Home History of present illness: Ms. Marte is a 71 year old female Who underwent a left total hip replacement on 2016 after the hardware from her prior hip fracture was protruding into the hip joint. She is here for rehabilitation. While at [facility] postop she developed A. fib with RVR she was placed on a amiodarone drip as she was already on by mouth Cardizem. That was titrated yesterday she was tachycardic and her by mouth Cardizem was increased to 180 mg a day. Her heart rate has not been in the 100s since then. She continues to be on the amiodarone and Cardizem and eliquis was for anticoagulation. She did have some postop anemia down at [facility] and was transfused 2 units packed red blood cells. Her hemoglobin was 10 yesterday it is down to 8 today. We will have to keep an eye on this. She may need to have her by mouth anticoagulation stopped. She has not had a bowel movement since before surgery. She is requesting something for that. Her pain is a 5 is acceptable she does not want to change her pain medication regimen Past Med Surg Social Fam HX - Past Medical History Medical history: arthritis, atrial fibrillation, GERD, hypertension, osteoporosis, other (Vitamin D deficiency) Psychiatric history: no psych history - Past Surgical History Surgical History: , hip replacement ((01/10 2017 after protrusion of hardware from her prior ORIF), orthopedic, other (Left hip ORIF 10/29/2016, left tib-fib ORIF August 2013) - Social History Smoking Status: Never smoker Smokeless Tobacco Status: No Alcohol use: none Drug use: none - Family History Father Living Status: Hx Family Cardiac Disorders: Yes (cad) Hx Family Respiratory Disorders: No Hx Family Cancer: Yes (throat) Hx Family GI Disorders: No Hx Family Endocrine Disorder: No Hx Family Neuromuscular Disorders: No Hx Family Neurologic Disorders: No Hx Family HEENT Disorders: No Hx Family Autoimmune Disorders: No Mother Hx Family Endocrine Disorder: Yes (dm2) Brother Adopted: [place]: philip kaur Age: 65 Family Member Ethnicity: Non- Living Status: Still Living Hx Family Cardiac Disorders: No Hx Family Respiratory Disorders: No Hx Family Cancer: Yes (throat) Hx Family GI Disorders: No Hx Family Genitourinary Disorders: No Hx Family Endocrine Disorder: Yes Hx Family Musculoskeletal Disorders: No Hx Family Neuromuscular Disorders: No Hx Family Neurologic Disorders: No Hx Family HEENT Disorders: No Hx Family Autoimmune Disorders: No Hx Family Reproductive Disorders: No Hx Family Psychosocial Disorders: No Hx Family Medical Disorders: No Sister Adopted: [place]: Darlin Springer Age: 70 Family Member Ethnicity: Non- Living Status: Still Living Hx Family Cardiac Disorders: Yes Hx Family Respiratory Disorders: No Hx Family Cancer: No Hx Family GI Disorders: No Hx Family Genitourinary Disorders: No Hx Family Musculoskeletal Disorders: No Hx Family Neuromuscular Disorders: No Hx Family Neurologic Disorders: No Hx Family HEENT Disorders: No Hx Family Autoimmune Disorders: No Hx Family Reproductive Disorders: No Hx Family Psychosocial Disorders: No Hx Family Medical Disorders: No Internal Medicine - H&P: Meds Alendronate Sodium [Fosamax] 70 mg PO MADDEN 10/28/16 [History] Ergocalciferol (VITAMIN D2) [Drisdol (50,000 Unit)] 50,000 unit PO Madden@0900 capsule 11/11/16 [Rx] Aspirin 325 mg PO DAILY #21 tablet 01/09/17 [Rx] OxyCODONE Immed Rel [Roxicodone 5 MG] 5 - 10 mg PO Q6HR PRN #40 tablet 01/09/17 [Rx] Acetaminophen [Tylenol] 650 mg PO Q4HR PRN #0 tablet 01/14/17 [Rx] Amiodarone [Cordarone] 200 mg PO DAILY tablet 01/14/17 [Rx] Apixaban [Eliquis] 5 mg PO BID tablet 01/14/17 [Rx] Ascorbic Acid [Vitamin C] 500 mg PO BIDWM tablet 01/14/17 [Rx] Aspirin Enteric Coated [Aspirin EC] 81 mg PO DAILY tablet. 01/14/17 [Rx] Diltiazem CD (24hr) [Cardizem CD] 180 mg PO DAILY 01/14/17 [History] Docusate [Colace] 100 mg PO BID capsule 01/14/17 [Rx] Famotidine [Pepcid] 20 mg PO HS tablet 01/14/17 [Rx] Ferrous Sulfate 325 mg PO BIDWM tablet 01/14/17 [Rx] MOM Conc [MILK OF MAGNESIA conc] 5 ml PO HS PRN #0 [id number] 01/14/17 [Rx] Multivit/Ca/Min/Fe/FA [Thera M Plus] 1 tab PO DAILY tablet 01/14/17 [Rx] OxyCODONE Immed Rel [Roxicodone 5 MG] 5 - 10 mg PO Q6HR PRN #56 tablet 01/14/17 [Rx] OxyCODONE Immed Rel [Roxicodone 5 MG] 5 mg PO Q4HR PRN 7 Days 01/14/17 [Rx] Allergies codeine Adverse Reaction (Verified 01/10/17 14:04) Vomiting All Systems PM: A 10-system review of systems was performed and is negative for pertinent findings except as documented above in the HPI. - Constitutional Constitutional: fatigue, no chills, no fever(s), no night sweats, no weakness ( focal, she does have generalized) - EENT Eyes: no change in vision Nose, mouth and throat: no nasal congestion, no nasal discharge - Cardiovascular Cardiovascular ROS IM: lightheadedness (when she first stands up), palpitations , no dyspnea - Respiratory Respiratory: no cough, no dyspnea, no wheezing - Gastrointestinal Gastrointestinal: constipation, nausea, no diarrhea, no hematemesis, no hematochezia, no loose stools, no melena, no vomiting - Genitourinary Genitourinary: no dysuria, no hematuria, no urinary frequency - Integumentary Integumentary IM: no pruritus, no rash - Neurological Neurological ROS: no loss of vision, no numbness - Constitutional Vitals: Temp Pulse Resp BP Pulse Ox 97.1 F L 67 18 107/59 97 01/15/17 06:47 01/15/17 06:47 01/15/17 06:47 01/15/17 06:47 01/15/17 06:47 General appearance: Present: A&O X 3, pleasant, no acute distress - Head Head exam: Present: atraumatic, normocephalic - Eye Eye exam: Present: EOMI, PERRL - Neck Neck exam general surgery: Present: supple. Absent: lymphadenopathy, tenderness , trachea midline - Respiratory Respiratory exam: Present: CTAB - Cardiovascular Cardiovascular exam: Present: RRR, systolic murmur - GI/Abdominal GI/Abdominal exam: Present: normal bowel sounds, soft, no peritoneal signs. Absent: distended, mass, rebound, tenderness - Extremities Exam Extremities exam: Present: normal capillary refill, warm. Absent: pedal edema - Incison Incision: Present: intact (With honeycomb dressing), serous (Very mild) - Skin Skin exam: Present: dry, intact, warm. Absent: rash Internal Med - H&P Results - Labs CBC & Chem 7: 01/15/17 05:15 Labs: Short CBC 01/15/17 Range/Units 05:15 WBC 7.9 (4.3-11.1) K/mcL Hgb 8.8 L (11.5-15.4) g/dL Hct 26.3 L (35.3-44.9) % Plt Count 226 (140-400) K/mcL Neutrophils # 5.2 (1.6-8.9) K/mcL Urine 04/15/17 Range/Units 02:30 Urine Color Light Yellow (Yellow) Urine Clarity Slightly Cloudy A (Clear) Urine pH 7.0 (5.0-8.0) pH Units Ur Specific [place] 1.010 (1.010-1.025) Urine Protein Negative (Neg-Trace) mg/dL Urine Glucose (UA) Normal (Normal) mg/dL
[2017-01-15] MEDS ORDERED: Lactulose Oral Soln 20 GM/30 ML UDC PO PRN (11:29)
[2017-01-15] MEDS: Famotidine 20 MG TABLET PO SCH ×2 (14:37→21:18)
[2017-01-15 15:38] LABS: BUN/Creatinine Ratio 12 (6-26); Blood Urea Nitrogen 6 mg/dL (7-20); Carbon Dioxide 29 mEq/L (19-29); Chloride 103 mEq/L (98-109); Glucose 103 mg/dL (70-99); Osmolality,Calculated 286 (280-300); Potassium 3.1 mEq/L (3.5-4.5); Sodium 139 mEq/L (136-145); eGFR For African Americans > 60 (> 60); eGFR For Non-African Americans > 60 (> 60)
[2017-01-15] MEDS: MOM Conc 10 ML UD.LIQ PO PRN (16:58)
[2017-01-15] MEDS ORDERED: Famotidine 20 MG TABLET PO SCH ×2 (21:00)
[2017-01-16 05:49] LABS: Basophils % 0.2 %; Eosinophils # 0.1 K/mcL (0.0-0.6); Eosinophils % 1.2 %; Hematocrit 27.7 % (35.3-44.9); Hemoglobin 9.1 g/dL (11.5-15.4); Immature Granulocytes % 0.4 % (0-4); Lymphocytes # 1.5 K/mcL (0.6-4.6); Lymphocytes % 13.4 %; Mean Corpuscular HGB Conc 32.9 g/dL (31.6-35.5); Mean Corpuscular Hemoglobin 27.1 pg (28.0-33.3); Mean Corpuscular Volume 82.4 fL (83.0-100.0); Mean Platelet Volume 9.1 fL (9.4-12.4); Monocytes # 0.8 K/mcL (0.0-1.3); Monocytes % 7.1 %; Neutrophils # 8.7 K/mcL (1.6-8.9); Platelet Count 293 K/mcL (140-400); Red Blood Count 3.36 M/mcL (3.82-4.97); Red Cell Distribution Width 14.6 % (11.5-14.5); Segmented Neutrophils % 77.7 %
[2017-01-16 05:59] LABS: BUN/Creatinine Ratio 9 (6-26); Carbon Dioxide 28 mEq/L (19-29); Chloride 102 mEq/L (98-109); Glucose 116 mg/dL (70-99); Osmolality,Calculated 284 (280-300); Potassium 3.1 mEq/L (3.5-4.5); Sodium 138 mEq/L (136-145); eGFR For African Americans > 60 (> 60); eGFR For Non-African Americans > 60 (> 60)
[2017-01-16 06:00] LABS: Blood Urea Nitrogen 5 mg/dL (7-20)
[2017-01-16] MEDS: *HR* OxyCODONE Immed Rel 5 MG TABLET PO PRN ×3 (06:32→22:02)
[2017-01-16] MEDS: Multivit/Ca/Min/Fe/FA 1 TAB TABLET PO SCH (09:31)
[2017-01-16] MEDS: *HR* Amiodarone 200 MG TABLET PO SCH (09:31)
[2017-01-16] MEDS: Diltiazem CD (24hr) 180 MG CAPSULE PO SCH (09:31)
[2017-01-16] MEDS: Aspirin Enteric Coated 81 MG Tablet PO SCH (09:32)
[2017-01-16] MEDS: Famotidine 20 MG TABLET PO SCH ×2 (09:32→18:22)
[2017-01-16] MEDS: APIXABAN 5 MG TABLET PO SCH ×2 (09:47→21:59)
[2017-01-16] MEDS: Ascorbic Acid 500 MG TABLET PO SCH ×2 (09:47→18:07)
--- NOTE | 2017-01-16 13:21 | Internal Med Progress Note ---
Date of Encounter: 01/16/17 Time of Encounter: 13:19 - Assessment and plan (1) Status post left hip replacement Current Visit: Yes Status: Acute Assessment and plan: here for PT/ RT/OT. d/c per rehab goals (2) A-fib Current Visit: Yes Status: Acute Assessment and plan: has been rate controlled on amiodarone, diltiazem. anticoagulated on eliquis Qualifiers: Atrial fibrillation type: paroxysmal Qualified Code(s): I48.0 - Paroxysmal atrial fibrillation (3) Acute blood loss anemia Current Visit: No Status: Acute Assessment and plan: stable. s/p 2 units prbc. continue the po iron (4) Hypertension Current Visit: No Status: Chronic Assessment and plan: stable continue current meds Qualifiers: Hypertension type: essential hypertension Qualified Code(s): I10 - Essential (primary) hypertension (5) Physical deconditioning Current Visit: No Status: Chronic Assessment and plan: continue PT/OT/RT (6) Vitamin D deficiency Current Visit: No Status: Chronic Assessment and plan: continue home med (7) DVT prophylaxis Current Visit: Yes Status: Acute Assessment and plan: eliquis and ambulation - Subjective Interval history: she is tired today. pain acceptable but sore. she is still dizzy when first getting up. no n/v, 3 stools since the lactulose. no cp, no sob, no wheeze, no palp - Constitutional Vitals: Temp Pulse Resp BP Pulse Ox 96.7 F L 88 18 89/52 94 01/16/17 07:23 01/16/17 07:23 01/16/17 07:23 01/16/17 07:23 01/16/17 07:23 General appearance: Present: A&O X 3, pleasant, no acute distress - Head Head exam: Present: atraumatic, normocephalic - Neck Neck exam general surgery: Present: supple, trachea midline. Absent: lymphadenopathy, tenderness - Respiratory Respiratory exam: Present: CTAB - Cardiovascular Cardiovascular exam: Present: RRR, systolic murmur - GI/Abdominal GI/Abdominal exam: Present: normal bowel sounds, soft, no peritoneal signs. Absent: distended, guarding, rebound, tenderness - Extremities Exam Extremities exam: Present: warm. Absent: cyanotic, pedal edema - Incison Incision: Present: serosanguinous (no change with honey comb dressing intact) Internal Medicine: Result - Labs CBC & Chem 7: 01/16/17 05:43 01/16/17 05:43 Labs: Short CBC 01/16/17 Range/Units 05:43 WBC 11.2 H (4.3-11.1) K/mcL Hgb 9.1 L (11.5-15.4) g/dL Hct 27.7 L (35.3-44.9) % Plt Count 293 (140-400) K/mcL Neutrophils # 8.7 (1.6-8.9) K/mcL BMP 01/15/17 01/16/17 05:15 05:43 Sodium 139 138 Potassium 3.1 L 3.1 L Chloride 103 102 Carbon Dioxide 29 28 BUN 6 L 5 L Creatinine 0.50 L 0.54 L Glucose 103 H 116 H Calcium 8.0 L 8.0 L - ABG Interpretation ABG results: PT/INR, D-dimer PT 12.7 Seconds (9.4-12.1) H 01/15/17 05:15 Consult Discharge Plan - Plan Referrals: Alyse Inman MD [Primary Care Provider] -
[2017-01-16] MEDS: (Alendronate Sodium [Fosamax] 70 MG) PO SCH (22:05)
[2017-01-17 06:09] LABS: Hematocrit 27.6 % (35.3-44.9); Hemoglobin 9.1 g/dL (11.5-15.4); Mean Corpuscular Hemoglobin 27.5 pg (28.0-33.3); Mean Corpuscular Volume 83.4 fL (83.0-100.0); Mean Platelet Volume 9.3 fL (9.4-12.4); Platelet Count 330 K/mcL (140-400); Red Blood Count 3.31 M/mcL (3.82-4.97); Red Cell Distribution Width 14.8 % (11.5-14.5)
[2017-01-17 06:15] LABS: BUN/Creatinine Ratio 9 (6-26); Blood Urea Nitrogen 5 mg/dL (7-20); Calcium 8.2 mg/dL (8.6-10.8); Carbon Dioxide 27 mEq/L (19-29); Chloride 105 mEq/L (98-109); Glucose 105 mg/dL (70-99); Osmolality,Calculated 292 (280-300); Potassium 3.5 mEq/L (3.5-4.5); Sodium 142 mEq/L (136-145); eGFR For African Americans > 60 (> 60); eGFR For Non-African Americans > 60 (> 60)
[2017-01-17] MEDS: Diltiazem CD (24hr) 180 MG CAPSULE PO SCH (08:31)
[2017-01-17] MEDS: Ascorbic Acid 500 MG TABLET PO SCH ×2 (08:31→17:43)
[2017-01-17] MEDS: Aspirin Enteric Coated 81 MG Tablet PO SCH (08:31)
[2017-01-17] MEDS: Famotidine 20 MG TABLET PO SCH ×2 (08:31→20:26)
[2017-01-17] MEDS: Multivit/Ca/Min/Fe/FA 1 TAB TABLET PO SCH (08:31)
[2017-01-17] MEDS: APIXABAN 5 MG TABLET PO SCH ×2 (08:31→20:24)
[2017-01-17] MEDS: *HR* Amiodarone 200 MG TABLET PO SCH (08:32)
[2017-01-17] MEDS: *HR* OxyCODONE Immed Rel 5 MG TABLET PO PRN ×3 (08:32→20:24)
--- NOTE | 2017-01-17 10:39 | Internal Med Progress Note ---
Date of Encounter: 01/17/17 Time of Encounter: 12:15 - Assessment and plan (1) Status post left hip replacement Current Visit: Yes Status: Acute Assessment and plan: here for PT/ RT/OT. d/c per rehab goals (2) A-fib Current Visit: Yes Status: Acute Assessment and plan: has been rate controlled on amiodarone, diltiazem. anticoagulated on eliquis Qualifiers: Atrial fibrillation type: paroxysmal Qualified Code(s): I48.0 - Paroxysmal atrial fibrillation (3) Acute blood loss anemia Current Visit: No Status: Acute Assessment and plan: stable. s/p 2 units prbc at [place]. continue the po iron (4) Hypertension Current Visit: No Status: Chronic Assessment and plan: stable continue current meds Qualifiers: Hypertension type: essential hypertension Qualified Code(s): I10 - Essential (primary) hypertension (5) Physical deconditioning Current Visit: No Status: Chronic Assessment and plan: continue PT/OT/RT (6) Vitamin D deficiency Current Visit: No Status: Chronic Assessment and plan: continue home med (7) DVT prophylaxis Current Visit: Yes Status: Acute Assessment and plan: eliquis and ambulation - Subjective Interval history: she is tired today. pain acceptable but sore. she is still dizzy when first getting up. no n/v, no cp, no sob, no wheeze, no palp - Constitutional Vitals: Temp Pulse Resp BP Pulse Ox 97.9 F 82 18 117/71 97 01/17/17 07:01 01/17/17 07:01 01/17/17 07:01 01/17/17 07:01 01/17/17 07:01 General appearance: Present: A&O X 3, pleasant, no acute distress - Head Head exam: Present: atraumatic, normocephalic - Neck Neck exam general surgery: Present: supple, trachea midline. Absent: lymphadenopathy, tenderness - Respiratory Respiratory exam: Present: CTAB - Cardiovascular Cardiovascular exam: Present: RRR, systolic murmur - GI/Abdominal GI/Abdominal exam: Present: soft, no peritoneal signs. Absent: distended, guarding, tenderness - Extremities Exam Extremities exam: Present: normal capillary refill, warm. Absent: pedal edema - Incison Incision: Present: intact, serosanguinous (with honeycomb dressing. no new d/c) . Absent: erythema - Skin Skin exam: Present: dry, warm. Absent: rash Internal Medicine: Result - Labs CBC & Chem 7: 01/17/17 05:10 01/17/17 05:10 Labs: Short CBC 01/17/17 Range/Units 05:10 WBC 7.9 (4.3-11.1) K/mcL Hgb 9.1 L (11.5-15.4) g/dL Hct 27.6 L (35.3-44.9) % Plt Count 330 (140-400) K/mcL BMP 01/17/17 05:10 Sodium 142 Potassium 3.5 Chloride 105 Carbon Dioxide 27 BUN 5 L Creatinine 0.56 L Glucose 105 H Calcium 8.2 L - ABG Interpretation ABG results: PT/INR, D-dimer PT 12.7 Seconds (9.4-12.1) H 01/15/17 05:15 Consult Discharge Plan - Plan Referrals: Alyse Inman MD [Primary Care Provider] -
[2017-01-18] MEDS: *HR* OxyCODONE Immed Rel 5 MG TABLET PO PRN ×3 (05:08→18:29)
[2017-01-18] MEDS: Multivit/Ca/Min/Fe/FA 1 TAB TABLET PO SCH (09:17)
[2017-01-18] MEDS: *HR* Amiodarone 200 MG TABLET PO SCH (09:17)
[2017-01-18] MEDS: APIXABAN 5 MG TABLET PO SCH ×2 (09:17→21:12)
[2017-01-18] MEDS: Diltiazem CD (24hr) 180 MG CAPSULE PO SCH (09:17)
[2017-01-18] MEDS: Ascorbic Acid 500 MG TABLET PO SCH ×2 (09:17→18:29)
[2017-01-18] MEDS: Famotidine 20 MG TABLET PO SCH ×2 (09:17→21:12)
[2017-01-18] MEDS: Aspirin Enteric Coated 81 MG Tablet PO SCH (09:18)
--- NOTE | 2017-01-18 09:19 | Internal Med Progress Note ---
Date of Encounter: 01/18/17 Time of Encounter: 09:18 - Assessment and plan (1) Status post left hip replacement Current Visit: Yes Status: Acute Assessment and plan: here for PT/ RT/OT. d/c per rehab goals, next week (2) A-fib Current Visit: Yes Status: Acute Assessment and plan: has been rate controlled on amiodarone, diltiazem. anticoagulated on eliquis Qualifiers: Atrial fibrillation type: paroxysmal Qualified Code(s): I48.0 - Paroxysmal atrial fibrillation (3) Acute blood loss anemia Current Visit: No Status: Acute Assessment and plan: stable. s/p 2 units prbc at [place]. continue the po iron (4) Hypertension Current Visit: No Status: Chronic Assessment and plan: stable continue current meds Qualifiers: Hypertension type: essential hypertension Qualified Code(s): I10 - Essential (primary) hypertension (5) Physical deconditioning Current Visit: No Status: Chronic Assessment and plan: continue PT/OT/RT (6) Vitamin D deficiency Current Visit: No Status: Chronic Assessment and plan: continue home med (7) DVT prophylaxis Current Visit: Yes Status: Acute Assessment and plan: eliquis and ambulation - Subjective Interval history: she is tired today. pain acceptable but sore. she is still dizzy when first getting up. no n/v, no cp, no sob, no wheeze, no palp. still slow to get moving - Constitutional Vitals: Temp Pulse Resp BP Pulse Ox 98.2 F 81 15 114/70 95 01/18/17 07:31 01/18/17 07:31 01/18/17 04:00 01/18/17 07:31 01/18/17 07:31 General appearance: Present: A&O X 3, pleasant, no acute distress - Head Head exam: Present: atraumatic, normocephalic - Neck Neck exam general surgery: Present: supple, trachea midline. Absent: lymphadenopathy - Respiratory Respiratory exam: Present: CTAB - Cardiovascular Cardiovascular exam: Present: RRR, systolic murmur - GI/Abdominal GI/Abdominal exam: Present: guarding, normal bowel sounds, soft, no peritoneal signs. Absent: distended, rebound, tenderness - Extremities Exam Extremities exam: Present: warm. Absent: cyanotic, pedal edema - Incison Incision: Present: serosanguinous (no change with honeycomb dressing) - Skin Skin exam: Present: dry, warm. Absent: rash Internal Medicine: Result - Labs CBC & Chem 7: 01/17/17 05:10 01/17/17 05:10 - ABG Interpretation ABG results: PT/INR, D-dimer PT 12.7 Seconds (9.4-12.1) H 01/15/17 05:15 Consult Discharge Plan - Plan Referrals: Alyse Inman MD [Primary Care Provider] -
[2017-01-18] MEDS: MOM Conc 10 ML UD.LIQ PO PRN (21:11)
[2017-01-19] MEDS: *HR* OxyCODONE Immed Rel 5 MG TABLET PO PRN ×3 (04:39→21:27)
[2017-01-19] MEDS: Diltiazem CD (24hr) 180 MG CAPSULE PO SCH (08:31)
[2017-01-19] MEDS: Ascorbic Acid 500 MG TABLET PO SCH ×2 (08:32→16:42)
[2017-01-19] MEDS: Aspirin Enteric Coated 81 MG Tablet PO SCH (08:32)
[2017-01-19] MEDS: *HR* Amiodarone 200 MG TABLET PO SCH (08:32)
[2017-01-19] MEDS: APIXABAN 5 MG TABLET PO SCH ×2 (08:32→21:26)
[2017-01-19] MEDS: Famotidine 20 MG TABLET PO SCH ×2 (08:32→21:26)
[2017-01-19] MEDS: Multivit/Ca/Min/Fe/FA 1 TAB TABLET PO SCH (08:32)
--- NOTE | 2017-01-19 08:41 | Internal Med Progress Note ---
Date of Encounter: 01/19/17 Time of Encounter: 13:12 - Assessment and plan (1) Status post left hip replacement Current Visit: Yes Status: Acute Assessment and plan: here for PT/ RT/OT. d/c per rehab goals, next week (2) A-fib Current Visit: Yes Status: Acute Assessment and plan: has been rate controlled on amiodarone, diltiazem. anticoagulated on eliquis Qualifiers: Atrial fibrillation type: paroxysmal Qualified Code(s): I48.0 - Paroxysmal atrial fibrillation (3) Acute blood loss anemia Current Visit: No Status: Acute Assessment and plan: stable. s/p 2 units prbc at [place]. continue the po iron (4) Hypertension Current Visit: No Status: Chronic Assessment and plan: stable continue current meds Qualifiers: Hypertension type: essential hypertension Qualified Code(s): I10 - Essential (primary) hypertension (5) Physical deconditioning Current Visit: No Status: Chronic Assessment and plan: continue PT/OT/RT (6) Vitamin D deficiency Current Visit: No Status: Chronic Assessment and plan: continue home med (7) DVT prophylaxis Current Visit: Yes Status: Acute Assessment and plan: eliquis and ambulation - Subjective Interval history: she is tired today. pain acceptable but sore. she had emesis yesterday in therapy after taking a pain pill no cp, no sob, no wheeze, no palp. still slow to get moving - Constitutional Vitals: Temp Pulse Resp BP Pulse Ox 98.3 F 86 18 104/54 96 01/19/17 06:58 01/19/17 08:39 01/19/17 06:58 01/19/17 08:39 01/19/17 06:58 General appearance: Present: A&O X 3, pleasant, no acute distress - Head Head exam: Present: atraumatic, normocephalic - Neck Neck exam general surgery: Present: normal inspection, supple, trachea midline. Absent: tenderness - Respiratory Respiratory exam: Present: CTAB - Cardiovascular Cardiovascular exam: Present: RRR, systolic murmur - GI/Abdominal GI/Abdominal exam: Present: normal bowel sounds, soft, no peritoneal signs. Absent: guarding, mass, rebound, tenderness - Extremities Exam Extremities exam: Present: normal capillary refill, warm. Absent: pedal edema - Incison Incision: Present: intact, serosanguinous (no change). Absent: erythema Internal Medicine: Result - Labs CBC & Chem 7: 01/17/17 05:10 01/17/17 05:10 - ABG Interpretation ABG results: PT/INR, D-dimer PT 12.7 Seconds (9.4-12.1) H 01/15/17 05:15 Consult Discharge Plan - Plan Referrals: Alyse Inman MD [Primary Care Provider] -
[2017-01-20] MEDS: *HR* OxyCODONE Immed Rel 5 MG TABLET PO PRN ×3 (03:20→17:38)
[2017-01-20 05:37] LABS: Hematocrit 28.9 % (35.3-44.9); Hemoglobin 9.3 g/dL (11.5-15.4); Mean Corpuscular HGB Conc 32.2 g/dL (31.6-35.5); Mean Platelet Volume 8.8 fL (9.4-12.4); Platelet Count 478 K/mcL (140-400); Red Blood Count 3.44 M/mcL (3.82-4.97); Red Cell Distribution Width 15.8 % (11.5-14.5)
[2017-01-20 05:47] LABS: BUN/Creatinine Ratio 14 (6-26); Blood Urea Nitrogen 9 mg/dL (7-20); Calcium 8.3 mg/dL (8.6-10.8); Carbon Dioxide 26 mEq/L (19-29); Chloride 104 mEq/L (98-109); Glucose 104 mg/dL (70-99); Osmolality,Calculated 287 (280-300); Potassium 3.8 mEq/L (3.5-4.5); Sodium 139 mEq/L (136-145); eGFR For African Americans > 60 (> 60); eGFR For Non-African Americans > 60 (> 60)
[2017-01-20] MEDS: Aspirin Enteric Coated 81 MG Tablet PO SCH (08:29)
[2017-01-20] MEDS: Multivit/Ca/Min/Fe/FA 1 TAB TABLET PO SCH (08:29)
[2017-01-20] MEDS: Diltiazem CD (24hr) 180 MG CAPSULE PO SCH (08:29)
[2017-01-20] MEDS: Ascorbic Acid 500 MG TABLET PO SCH ×2 (08:29→17:33)
[2017-01-20] MEDS: Famotidine 20 MG TABLET PO SCH ×2 (08:29→21:03)
[2017-01-20] MEDS: APIXABAN 5 MG TABLET PO SCH ×2 (08:30→21:03)
[2017-01-20] MEDS: *HR* Amiodarone 200 MG TABLET PO SCH (08:30)
--- NOTE | 2017-01-20 10:33 | Internal Med Progress Note ---
Date of Encounter: 01/20/17 Time of Encounter: 19:49 - Assessment and plan (1) Status post left hip replacement Current Visit: Yes Status: Acute Assessment and plan: here for PT/ RT/OT. d/c per rehab goals, next week (2) A-fib Current Visit: Yes Status: Acute Assessment and plan: has been rate controlled on amiodarone, diltiazem. anticoagulated on eliquis. her insurance will not cover and the card given to her by cardio will not cover. it was 170+ a month and she cannot afford that. sent an ecw note to [facility] to see how long she wanted to continue anticoagulation. or if we should change to coumadin Qualifiers: Atrial fibrillation type: paroxysmal Qualified Code(s): I48.0 - Paroxysmal atrial fibrillation (3) Acute blood loss anemia Current Visit: No Status: Acute Assessment and plan: stable. s/p 2 units prbc at [place]. continue the po iron (4) Hypertension Current Visit: No Status: Chronic Assessment and plan: stable continue current meds Qualifiers: Hypertension type: essential hypertension Qualified Code(s): I10 - Essential (primary) hypertension (5) Physical deconditioning Current Visit: No Status: Chronic Assessment and plan: continue PT/OT/RT (6) Vitamin D deficiency Current Visit: No Status: Chronic Assessment and plan: continue home med (7) DVT prophylaxis Current Visit: Yes Status: Acute Assessment and plan: eliquis and ambulation (8) Edema of left lower extremity Current Visit: Yes Status: Acute Assessment and plan: will get a doppler to eval for dvt with the impressive edema. removed the knee brace she was wearing. she is on eliquis. - Subjective Interval history: she went to [place] today for ortho follow up. she is having a lot of edema of the left leg. she was wearing a knee brace. i removed that just now. no sob , no palp. her dizzy is better but not resolved. no n/v. bowels ok, no bladder problems. no sob. - Constitutional Vitals: Temp Pulse Resp BP Pulse Ox 98.2 F 84 16 114/66 96 01/20/17 07:00 01/20/17 07:00 01/20/17 07:00 01/20/17 07:00 01/20/17 07:00 General appearance: Present: A&O X 3, pleasant, no acute distress - Head Head exam: Present: atraumatic, normocephalic - Neck Neck exam general surgery: Present: supple, trachea midline. Absent: lymphadenopathy, tenderness - Respiratory Respiratory exam: Present: CTAB - Cardiovascular Cardiovascular exam: Present: RRR, systolic murmur - GI/Abdominal GI/Abdominal exam: Present: normal bowel sounds, soft, no peritoneal signs. Absent: distended, guarding, tenderness - Extremities Exam Extremities exam: Present: pedal edema (2+ to the thigh of the left leg). Absent: mottling - Incison Incision: Present: serous, serosanguinous (the new dressing superior 1cm. ). Absent: red, erythema, purulent - Skin Skin exam: Present: dry, warm. Absent: rash Internal Medicine: Result - Labs CBC & Chem 7: 01/20/17 05:10 01/20/17 05:10 Labs: Short CBC 01/20/17 Range/Units 05:10 WBC 10.1 (4.3-11.1) K/mcL Hgb 9.3 L (11.5-15.4) g/dL Hct 28.9 L (35.3-44.9) % Plt Count 478 H (140-400) K/mcL BMP 01/20/17 05:10 Sodium 139 Potassium 3.8 Chloride 104 Carbon Dioxide 26 BUN 9 Creatinine 0.65 Glucose 104 H Calcium 8.3 L - ABG Interpretation ABG results: PT/INR, D-dimer PT 12.7 Seconds (9.4-12.1) H 01/15/17 05:15 Consult Discharge Plan - Plan Referrals: Alyse Inman MD [Primary Care Provider] -
[2017-01-21] MEDS: *HR* OxyCODONE Immed Rel 5 MG TABLET PO PRN ×3 (03:55→20:10)
--- NOTE | 2017-01-21 06:48 | Internal Med Progress Note ---
Date of Encounter: 01/21/17 Time of Encounter: 06:47 - Assessment and plan (1) Status post left hip replacement Current Visit: Yes Status: Acute Assessment and plan: Status post left hip replacement and was seen by Chantel Goodman yesterday. Postop dressing and staple care directions have been reviewed. Continue with therapy. Sakina to be removed on 01/28/17. Pain appears to be under good control. (2) A-fib Current Visit: Yes Status: Acute Assessment and plan: History of atrial fibrillation, the rhythm is regular and last EKG showed normal sinus rhythm. Has follow-up with soaking room operator planned to help decide how long she needs to be on anticoagulation, Dr. Inman sent a message to Dr. Alicia to see if an alternate anticoagulant that may be cheaper may suffice. Continue with Eliquis for now Qualifiers: Atrial fibrillation type: paroxysmal Qualified Code(s): I48.0 - Paroxysmal atrial fibrillation (3) Hypertension Current Visit: No Status: Chronic Assessment and plan: Blood pressure is under good control. Continue to monitor. Qualifiers: Hypertension type: essential hypertension Qualified Code(s): I10 - Essential (primary) hypertension (4) Physical deconditioning Current Visit: No Status: Chronic Assessment and plan: Continued with swing bed status with PT and OT and shelter. The nurses report that she is advancing, she goes slowly but is able to do everything required of her in the swing bed capacity. (5) Edema of left lower extremity Current Visit: Yes Status: Acute Assessment and plan: Edema of the left lower extremity, pitting edema at the lower ankle and particularly the lateral malleolus region. This appears to be in a dependent position. No other signs suggestive of DVT. She is already on anticoagulation. Dr. Inman has ordered a venous ultrasound to rule out DVT. May continue with therapy in the meantime. (6) Acute blood loss anemia Current Visit: No Status: Acute Assessment and plan: Her hemoglobin has increased to the 9 range and stable. No obvious signs of bleeding. (7) Vitamin D deficiency Current Visit: No Status: Chronic (8) DVT prophylaxis Current Visit: Yes Status: Acute Assessment and plan: Currently he is on Eliquis and mobilization - Subjective Interval history: Patient says that she slept well. She thinks her pain is under good control. No trouble with urine or bowel elimination. The nurses report that she is slow but is able to do everything she needs to do in a swing bed capacity. She dresses independently with just someone standby for assistance if needed. She does not have the greatest appetite, but that history usual. She does not care for her cardiac diet. The nurses reported that the swelling left lower extremity is better. They think it is because she was seated upright for long periods of time yesterday to and from [facility]. She denies any chest pain, palpitations, irregular heartbeat sensation, dyspnea , orthopnea, abdominal pain. She thinks her pain medication is adequate, and her biggest complaint is pain at the knee chronically. - Constitutional Vitals: Temp Pulse Resp BP Pulse Ox 97.6 F 82 18 143/63 95 01/21/17 06:37 01/21/17 06:37 01/21/17 06:37 01/21/17 06:37 01/21/17 06:37 General appearance: Present: A&O X 3, pleasant, no acute distress - Respiratory Respiratory exam: Present: CTAB. Absent: respiratory distress, wheezes - Cardiovascular Cardiovascular exam: Present: RRR, +S1, +S2, systolic murmur (1-2/6 systolic murmur at the left sternal border.) - GI/Abdominal GI/Abdominal exam: Present: soft. Absent: tenderness, no peritoneal signs - Extremities Exam Additional comments: The left ankle and particularly the lateral malleolus area is swollen with edema and pitting. No edema at the toes. The upper ankle and calf is not particularly swollen or edematous. No bruising No calf tenderness. No posterior popliteal tenderness. No thigh tenderness. Her left lateral thigh dressing is intact with about a dime-sized area of dried drainage. - Incison Comments: Incision is covered with dressing and clear overlying dressing. About dime- sized area of dried drainage noted in the upper portion. No significant bruising. Not tender on light palpation. Internal Medicine: Result - Labs CBC & Chem 7: 01/20/17 05:10 01/20/17 05:10 Labs: Labs from yesterday have been reviewed and stable. Hemoglobin is increasing. - ABG Interpretation ABG results: PT/INR, D-dimer PT 12.7 Seconds (9.4-12.1) H 04/15/17 05:15 Consult Discharge Plan - Plan Referrals: Alyse Inman MD [Primary Care Provider] -
[2017-01-21] MEDS: Ascorbic Acid 500 MG TABLET PO SCH ×2 (08:26→18:18)
[2017-01-21] MEDS: *HR* Amiodarone 200 MG TABLET PO SCH (08:26)
[2017-01-21] MEDS: Multivit/Ca/Min/Fe/FA 1 TAB TABLET PO SCH (08:27)
[2017-01-21] MEDS: APIXABAN 5 MG TABLET PO SCH ×2 (08:27→20:09)
[2017-01-21] MEDS: Aspirin Enteric Coated 81 MG Tablet PO SCH (08:27)
[2017-01-21] MEDS: Famotidine 20 MG TABLET PO SCH ×2 (08:27→20:09)
[2017-01-21] MEDS: Diltiazem CD (24hr) 180 MG CAPSULE PO SCH (08:27)
[2017-01-22] MEDS: *HR* OxyCODONE Immed Rel 5 MG TABLET PO PRN ×2 (06:45→20:08)
--- NOTE | 2017-01-22 06:45 | Internal Med Progress Note ---
Date of Encounter: 01/22/17 Time of Encounter: 06:35 - Assessment and plan (1) Status post left hip replacement Current Visit: Yes Status: Acute Assessment and plan: She appears to be doing well from a postoperative point of view. Pain is under good control with minimal medication. She advances with her therapies. Continue the same for now. (2) A-fib Current Visit: Yes Status: Acute Assessment and plan: Prior history of atrial fibrillation. Her current rhythm is regular and controlled. Qualifiers: Atrial fibrillation type: paroxysmal Qualified Code(s): I48.0 - Paroxysmal atrial fibrillation (3) Hypertension Current Visit: No Status: Chronic Assessment and plan: Blood pressure is under good control. Continue same medication. Qualifiers: Hypertension type: essential hypertension Qualified Code(s): I10 - Essential (primary) hypertension (4) Physical deconditioning Current Visit: No Status: Chronic Assessment and plan: She is advancing in her therapies. PT and OT reports of been reviewed. Continue same therapy plan until discharged to home. (5) Edema of left lower extremity Current Visit: Yes Status: Acute Assessment and plan: Mild amount of left lower extremity swelling. Negative ultrasound for DVT. She is anticoagulated. This seems to be improving. Likely dependent edema and from her left hip surgery. (6) Acute blood loss anemia Current Visit: No Status: Acute Assessment and plan: Last hemoglobin improved and stable. (7) Vitamin D deficiency Current Visit: No Status: Chronic (8) DVT prophylaxis Current Visit: Yes Status: Acute - Subjective Interval history: Patient has no new complaints. She states pain control is adequate and using pain medication to 3 times per day. She thinks she is advancing well with her therapy slowly. Yesterday she was standing at the kitchen in physical therapy preparing macaroni and cheese. She is increasing her endurance. She denies any chest pain, palpitations, irregular heartbeat, GI or symptoms. Her bowels are moving about every other day which is her usual. She thinks the swelling in the left lower extremity is decreasing. She says she has always had troubles with that ankle from previous fracture and surgery. Her ultrasound yesterday was negative for DVT - Constitutional Vitals: Temp Pulse Resp BP Pulse Ox 98.5 F 79 16 102/64 95 01/21/17 20:30 01/22/17 04:12 01/21/17 20:30 01/22/17 04:12 01/22/17 04:12 General appearance: Present: A&O X 3, pleasant, no acute distress - Respiratory Respiratory exam: Present: CTAB - Cardiovascular Cardiovascular exam: Present: RRR, +S1, +S2, systolic murmur (2/6 systolic murmur at outlet and left sternal border) - GI/Abdominal GI/Abdominal exam: Present: soft, no peritoneal signs. Absent: mass, tenderness - Extremities Exam Additional comments: Still has some edema left lower extremity, improved. Primarily localized to the left lateral ankle region. No calf tenderness. No thigh tenderness. Incision doing well as below. No skin breakdown. - Incison Comments: The left lateral thigh incision is covered with sterile dressing. Small area of dried drainage slightly enlarged in size but about 2 cm in diameter. Clear dressing intact. No signs of infection or bleeding or bruising. Not particularly tender on palpation. Internal Medicine: Result - Labs CBC & Chem 7: 01/20/17 05:10 01/20/17 05:10 - ABG Interpretation ABG results: PT/INR, D-dimer PT 12.7 Seconds (9.4-12.1) H 01/15/17 05:15 Consult Discharge Plan - Plan Referrals: Alyse Inman MD [Primary Care Provider] -
[2017-01-22] MEDS: Diltiazem CD (24hr) 180 MG CAPSULE PO SCH (08:35)
[2017-01-22] MEDS: Ascorbic Acid 500 MG TABLET PO SCH ×2 (08:35→17:21)
[2017-01-22] MEDS: Multivit/Ca/Min/Fe/FA 1 TAB TABLET PO SCH (08:35)
[2017-01-22] MEDS: Aspirin Enteric Coated 81 MG Tablet PO SCH (08:35)
[2017-01-22] MEDS: Famotidine 20 MG TABLET PO SCH ×2 (08:36→20:08)
[2017-01-22] MEDS: *HR* Amiodarone 200 MG TABLET PO SCH (08:36)
[2017-01-22] MEDS: APIXABAN 5 MG TABLET PO SCH ×2 (08:36→20:08)
--- NOTE | 2017-01-22 13:46 | Venous Imaging Report ---
LE Venous Duplex Patient Name:Priya Marte Order Number:[id number] Procedure Date:01/21/2017 Date:1945ge:71 yrs Gender:Female Location:[facility] Room #: 117-B Occupational Hygienist:Joy Escobedo RVT Referring MD:Alyse Dobson MD instructor industrial design:Same as Ordering Provider Reading MD:Enoch Joe MD Primary Indications:edema, post op swelling Secondary Indications: Risk Factors Yes/No Anticoagulants Yes Recent Surgery Yes Impressions: Left lower extremity: normal superficial and deep exam. Recommendations: Critical findings reported to Nurse in person by Joy Escobedo RVT. Findings Venous Duplex Results: Right: Venous imaging of the lower extremity reveals full patency and normal vessel compressibility of the right common femoral. Doppler signals in the evaluated veins were normal. Left: Venous imaging of the lower extremity reveals full patency and normal vessel compressibility of the left distal iliac, left common femoral, left superficial femoral, left popliteal, left posterior tibial, left peroneal, left great saphenous and left lesser saphenous. Doppler signals in the evaluated veins were normal. Prior Study: No prior study available for comparison. Lower Extremity Venous Duplex Side Vein Compress Spontaneous Flow Augment Diameter (cm) Depth (cm) Left Distal Iliac Normal Yes Phasic Yes Left Common Femoral Normal Yes Phasic Yes Left Superficial Femoral Normal Yes Phasic Yes Left Popliteal Normal Yes Phasic Yes Left Posterior Tibial Normal Yes Phasic Yes Left Peroneal Normal Yes Phasic Yes Left Great Saphenous Normal Yes Phasic Yes Left Lesser Saphenous Normal Yes Phasic Yes Right Common Femoral Normal Yes Phasic Yes Updated by Enoch Joe MD on 01/22/2017 1:41:24 PM electronically signed on 01/22/2017 1:41:38 PM with status of Final
[2017-01-23] MEDS: *HR* OxyCODONE Immed Rel 5 MG TABLET PO PRN ×3 (04:27→23:37)
[2017-01-23] MEDS: Ascorbic Acid 500 MG TABLET PO SCH ×2 (08:18→17:31)
[2017-01-23] MEDS: Aspirin Enteric Coated 81 MG Tablet PO SCH (08:18)
[2017-01-23] MEDS: APIXABAN 5 MG TABLET PO SCH ×2 (08:18→20:10)
[2017-01-23] MEDS: *HR* Amiodarone 200 MG TABLET PO SCH (08:18)
[2017-01-23] MEDS: Famotidine 20 MG TABLET PO SCH ×2 (08:18→20:10)
[2017-01-23] MEDS: Diltiazem CD (24hr) 180 MG CAPSULE PO SCH (08:18)
[2017-01-23] MEDS: Multivit/Ca/Min/Fe/FA 1 TAB TABLET PO SCH (08:19)
--- NOTE | 2017-01-23 11:39 | Internal Med Progress Note ---
Date of Encounter: 01/23/17 Time of Encounter: 11:34 - Assessment and plan (1) Status post left hip replacement Current Visit: Yes Status: Acute Assessment and plan: Status post left hip replacement and advancing with her therapies. She is needing minimal pain medication. I will be sure she has Tylenol as an option to her narcotic pain medication for lesser amount of pain as she is concerned that the oxycodone is making her sleepy. Continue with her therapies. Dressings intact and appropriate. (2) A-fib Current Visit: Yes Status: Acute Assessment and plan: History of atrial fibrillation. She has a regular rate and rhythm. She has no angina or CHF findings. She is anticoagulated with Eliquis. Qualifiers: Atrial fibrillation type: paroxysmal Qualified Code(s): I48.0 - Paroxysmal atrial fibrillation (3) Hypertension Current Visit: No Status: Chronic Assessment and plan: Her blood pressure is under good control. Will continue the same medications. Qualifiers: Hypertension type: essential hypertension Qualified Code(s): I10 - Essential (primary) hypertension (4) Physical deconditioning Current Visit: No Status: Chronic Assessment and plan: She continues to advance with her therapies. She plans to take a shower and take a walk this afternoon. Therapy notes were reviewed. (5) Edema of left lower extremity Current Visit: Yes Status: Acute Assessment and plan: Continued edema of the left lower extremity. Partially this is due to her surgery on that side. I suspect the knee brace may be inhibiting return flow for the lower leg as well. I recommended that she take the brace off when she is in bed and elevate. Negative venous ultrasound for DVT reported. I do not think she would need a diuretic at this point. (6) Acute blood loss anemia Current Visit: No Status: Acute Assessment and plan: Her last hemoglobin was 9.3. No active bleeding noted. I did not repeat hemoglobin at this point. (7) Vitamin D deficiency Current Visit: No Status: Chronic (8) DVT prophylaxis Current Visit: Yes Status: Acute Assessment and plan: Patient is on Eliquis and is ambulating. - Subjective Interval history: Patient's only complaint is that she gets sleepy and is hard to keep her eyes open particularly in the morning. She says she sleeps well at night. She did not have any pain medication this morning as she refused it thinking it might be making her sleepy. She denies any chest pain, palpitations, dyspnea, GI or symptoms. She had a bowel movement yesterday. She thinks her pain is under adequate control. She thinks the swelling in the left lower extremity is improved. She wears a knee brace for comfort when she is out of bed. - Constitutional Vitals: Temp Pulse Resp BP Pulse Ox 97.5 F L 74 18 107/73 97 01/23/17 06:55 01/23/17 06:55 01/23/17 06:55 01/23/17 06:55 01/23/17 06:55 General appearance: Present: A&O X 3, pleasant, no acute distress Exam: Patient is sitting in her chair having lunch. She is in no distress. - Respiratory Respiratory exam: Present: CTAB - Cardiovascular Cardiovascular exam: Present: RRR, +S1, +S2, systolic murmur (2/6 systolic murmur) - GI/Abdominal GI/Abdominal exam: Absent: tenderness - Extremities Exam Additional comments: Left lower extremity still shows pitting edema in the left foot and lower ankle. No calf tenderness. Negative Homans sign. There is no redness. She has her knee brace on. She is able to stand up from a chair and stand at the Walker while I evaluate her left lateral hip. Incision examination as below. She has no significant tenderness. No new bruising. - Incison Comments: The dressings are intact. A site of old drainage on the upper dressing is about 2 cm in diameter without any change. No new drainage noted. Overlying clear drainage intact. There is no significant tenderness. No bruising noted. Internal Medicine: Result - Labs CBC & Chem 7: 01/20/17 05:10 01/20/17 05:10 - ABG Interpretation ABG results: PT/INR, D-dimer PT 12.7 Seconds (9.4-12.1) H 01/15/17 05:15 - Diagnostic Studies Venous US Additional comments: Venous ultrasound report was reviewed. No DVT. Consult Discharge Plan - Plan Referrals: Alyse Inman MD [Primary Care Provider] -
[2017-01-23] MEDS: (Alendronate Sodium [Fosamax] 70 MG) PO SCH (20:10)
[2017-01-24] MEDS: APIXABAN 5 MG TABLET PO SCH ×2 (09:30→21:02)
[2017-01-24] MEDS: Diltiazem CD (24hr) 180 MG CAPSULE PO SCH (09:30)
[2017-01-24] MEDS: Aspirin Enteric Coated 81 MG Tablet PO SCH (09:30)
[2017-01-24] MEDS: Famotidine 20 MG TABLET PO SCH ×2 (09:31→21:02)
[2017-01-24] MEDS: *HR* Amiodarone 200 MG TABLET PO SCH (09:31)
[2017-01-24] MEDS: Multivit/Ca/Min/Fe/FA 1 TAB TABLET PO SCH (09:31)
[2017-01-24] MEDS: Ascorbic Acid 500 MG TABLET PO SCH ×2 (09:31→17:34)
--- NOTE | 2017-01-24 12:30 | Internal Med Progress Note ---
Date of Encounter: 01/24/17 Time of Encounter: 12:40 - Assessment and plan (1) Status post left hip replacement Current Visit: Yes Status: Acute Assessment and plan: she is here fo r pt,ot,rt. she is progressing and weight bearing. goal is d/c home on (2) A-fib Current Visit: Yes Status: Acute Assessment and plan: History of atrial fibrillation. She has a regular rate and rhythm. She has no angina or CHF findings. She is anticoagulated with Eliquis. rated controlled with diltiazem and amiodorone Qualifiers: Atrial fibrillation type: paroxysmal Qualified Code(s): I48.0 - Paroxysmal atrial fibrillation (3) Acute blood loss anemia Current Visit: No Status: Acute Assessment and plan: Her last hemoglobin was 9.3. No active bleeding noted. I did not repeat hemoglobin at this point. (4) Hypertension Current Visit: No Status: Chronic Assessment and plan: Her blood pressure is under good control. Will continue the same medications. Qualifiers: Hypertension type: essential hypertension Qualified Code(s): I10 - Essential (primary) hypertension (5) Physical deconditioning Current Visit: No Status: Chronic Assessment and plan: She continues to advance with her therapies. . (6) Vitamin D deficiency Current Visit: No Status: Chronic Assessment and plan: continue home med (7) DVT prophylaxis Current Visit: Yes Status: Acute Assessment and plan: Patient is on Eliquis and is ambulating. (8) Edema of left lower extremity Current Visit: Yes Status: Acute Assessment and plan: Continued edema of the left lower extremity. Partially this is due to her surgery on that side. I suspect the knee brace may be inhibiting return flow for the lower leg as well. I recommended that she take the brace off when she is in bed and elevate. Negative venous ultrasound for DVT reported. I do not think she would need a diuretic at this point. - Subjective Interval history: she is having some pain in the hip today. thinks she will take oxycodone after therapy today. she does not want to be tired during therapy so she is waiting to take. her edema in the left leg has decreased. no sob, no cp no palp, no dizzy today. bowels and bladder ok. planning for d/c on - Constitutional Vitals: Temp Pulse Resp BP Pulse Ox 98.0 F 86 17 120/56 99 04/24/17 11:38 01/24/17 11:38 01/24/17 11:38 01/24/17 11:38 01/24/17 11:38 General appearance: Present: A&O X 3, pleasant, no acute distress - Head Head exam: Present: atraumatic, normocephalic - Neck Neck exam general surgery: Present: supple, trachea midline. Absent: tenderness - Respiratory Respiratory exam: Present: CTAB - Cardiovascular Cardiovascular exam: Present: RRR, systolic murmur - GI/Abdominal GI/Abdominal exam: Present: normal bowel sounds, soft, no peritoneal signs. Absent: mass, rebound, tenderness - Extremities Exam Extremities exam: Present: pedal edema (but diminished now of the left leg 1+ to thigh), warm. Absent: cyanotic - Incison Incision: Present: serous (no change of the dressing drainage area). Absent: erythema - Skin Skin exam: Present: dry, warm. Absent: rash Internal Medicine: Result - Labs CBC & Chem 7: 01/20/17 05:10 01/20/17 05:10 - ABG Interpretation ABG results: PT/INR, D-dimer PT 12.7 Seconds (9.4-12.1) H 01/15/17 05:15 Consult Discharge Plan - Plan Referrals: Alyse Inman MD [Primary Care Provider] -
[2017-01-24] MEDS: *HR* OxyCODONE Immed Rel 5 MG TABLET PO PRN ×2 (13:11→21:03)
[2017-01-25] MEDS: *HR* OxyCODONE Immed Rel 5 MG TABLET PO PRN ×2 (05:40→22:42)
[2017-01-25] MEDS: Famotidine 20 MG TABLET PO SCH ×2 (09:56→21:34)
[2017-01-25] MEDS: Multivit/Ca/Min/Fe/FA 1 TAB TABLET PO SCH (09:56)
[2017-01-25] MEDS: Diltiazem CD (24hr) 180 MG CAPSULE PO SCH (09:56)
[2017-01-25] MEDS: Ascorbic Acid 500 MG TABLET PO SCH ×2 (09:56→17:12)
[2017-01-25] MEDS: Aspirin Enteric Coated 81 MG Tablet PO SCH (09:56)
[2017-01-25] MEDS: APIXABAN 5 MG TABLET PO SCH ×2 (09:56→21:34)
[2017-01-25] MEDS: *HR* Amiodarone 200 MG TABLET PO SCH (09:56)
--- NOTE | 2017-01-25 16:17 | Internal Med Progress Note ---
Date of Encounter: 01/25/17 Time of Encounter: 16:15 - Assessment and plan (1) Status post left hip replacement Current Visit: Yes Status: Acute Assessment and plan: she is here fo r pt,ot,rt. she is progressing and weight bearing. goal is d/c home on (2) A-fib Current Visit: Yes Status: Acute Assessment and plan: History of atrial fibrillation. She has a regular rate and rhythm. She has no angina or CHF findings. She is anticoagulated with Eliquis. rated controlled with diltiazem and amiodorone. the eliquis is not affordable for her outpt. she spoke jarad parks's office and will discuss on 01/28 at her appt. discussed stroke risk with afib. Qualifiers: Atrial fibrillation type: paroxysmal Qualified Code(s): I48.0 - Paroxysmal atrial fibrillation (3) Acute blood loss anemia Current Visit: No Status: Acute Assessment and plan: hg stable No active bleeding noted. I did not repeat hemoglobin at this point. (4) Hypertension Current Visit: No Status: Chronic Assessment and plan: Her blood pressure is under good control. Will continue the same medications.but occ getting low. only diltiazem Qualifiers: Hypertension type: essential hypertension Qualified Code(s): I10 - Essential (primary) hypertension (5) Physical deconditioning Current Visit: No Status: Chronic Assessment and plan: She continues to advance with her therapies. . (6) Vitamin D deficiency Current Visit: No Status: Chronic (7) DVT prophylaxis Current Visit: Yes Status: Acute Assessment and plan: Patient is on Eliquis and is ambulating. (8) Edema of left lower extremity Current Visit: Yes Status: Acute - Subjective Interval history: she took the oxycodone yesterday and had emesis today with it. no abd pain she does not want to be tired during therapy so she is waiting to take. her edema in the left leg has been the same. no sob, no cp no palp, no dizzy today. bowels and bladder ok. planning for d/c on - Constitutional Vitals: Temp Pulse Resp BP Pulse Ox 98.1 F 78 16 128/70 95 01/25/17 07:26 01/25/17 07:26 01/25/17 07:26 01/25/17 07:59 01/25/17 07:26 General appearance: Present: A&O X 3, pleasant, no acute distress - Head Head exam: Present: atraumatic, normocephalic - Neck Neck exam general surgery: Present: supple, trachea midline. Absent: lymphadenopathy, tenderness - Respiratory Respiratory exam: Present: CTAB - Cardiovascular Cardiovascular exam: Present: RRR, systolic murmur - GI/Abdominal GI/Abdominal exam: Present: normal bowel sounds, soft, no peritoneal signs. Absent: guarding, rebound, tenderness - Extremities Exam Extremities exam: Present: pedal edema (same of the left leg knee down). Absent : cyanotic - Incison Incision: Present: serous (no change in the dressing) Internal Medicine: Result - Labs CBC & Chem 7: 01/20/17 05:10 01/20/17 05:10 - ABG Interpretation ABG results: PT/INR, D-dimer PT 12.7 Seconds (9.4-12.1) H 01/15/17 05:15 Consult Discharge Plan - Plan Referrals: Alyse Inmna MD [Primary Care Provider] -
[2017-01-26] MEDS: Ascorbic Acid 500 MG TABLET PO SCH ×2 (08:44→16:29)
[2017-01-26] MEDS: Diltiazem CD (24hr) 180 MG CAPSULE PO SCH (08:45)
[2017-01-26] MEDS: Aspirin Enteric Coated 81 MG Tablet PO SCH (08:45)
[2017-01-26] MEDS: APIXABAN 5 MG TABLET PO SCH ×2 (08:46→21:28)
[2017-01-26] MEDS: *HR* Amiodarone 200 MG TABLET PO SCH (08:46)
[2017-01-26] MEDS: Multivit/Ca/Min/Fe/FA 1 TAB TABLET PO SCH (08:47)
[2017-01-26] MEDS: Famotidine 20 MG TABLET PO SCH ×2 (08:47→21:28)
--- NOTE | 2017-01-26 11:50 | Internal Med Progress Note ---
Date of Encounter: 01/26/17 Time of Encounter: 14:07 - Assessment and plan (1) Status post left hip replacement Current Visit: Yes Status: Acute Assessment and plan: she is here fo r pt,ot,rt. she is progressing and weight bearing. goal is d/c home on (2) A-fib Current Visit: Yes Status: Acute Assessment and plan: History of atrial fibrillation. She has a regular rate and rhythm. She has no angina or CHF findings. She is anticoagulated with Eliquis. rated controlled with diltiazem and amiodorone. the eliquis is not affordable for her outpt. she spoke jarad parks's office and will discuss on 01/28 at her appt. discussed stroke risk with afib. pt is aware of the risk and wants to talk to cardio first Qualifiers: Atrial fibrillation type: paroxysmal Qualified Code(s): I48.0 - Paroxysmal atrial fibrillation (3) Acute blood loss anemia Current Visit: No Status: Acute Assessment and plan: hg stable No active bleeding noted. I did not repeat hemoglobin at this point. she has 2 units at [place] (4) Hypertension Current Visit: No Status: Chronic Assessment and plan: Her blood pressure is under good control. Will continue the same medications.but occ getting low. only diltiazem Qualifiers: Hypertension type: essential hypertension Qualified Code(s): I10 - Essential (primary) hypertension (5) Physical deconditioning Current Visit: No Status: Chronic Assessment and plan: She continues to advance with her therapies. . (6) Vitamin D deficiency Current Visit: No Status: Chronic Assessment and plan: continue home med (7) DVT prophylaxis Current Visit: Yes Status: Acute Assessment and plan: Patient is on Eliquis and is ambulating. (8) Edema of left lower extremity Current Visit: Yes Status: Acute Assessment and plan: Continued edema of the left lower extremity. Partially this is due to her surgery on that side. I suspect the knee brace may be inhibiting return flow for the lower leg as well. I recommended that she take the brace off when she is in bed and elevate. Negative venous ultrasound for DVT reported. I do not think she would need a diuretic at this point. - Subjective Interval history: no emesis but some nausea. no abd pain . her edema in the left leg has been the same. no sob, no cp no palp, no dizzy today. bowels and bladder ok. planning for d/c on - Constitutional Vitals: Temp Pulse Resp BP Pulse Ox 98.5 F 74 18 126/62 95 01/26/17 11:46 01/26/17 11:46 01/26/17 11:46 01/26/17 11:46 01/26/17 11:46 General appearance: Present: A&O X 3, pleasant, no acute distress - Head Head exam: Present: atraumatic, normocephalic - Neck Neck exam general surgery: Present: supple, trachea midline. Absent: lymphadenopathy, tenderness - Respiratory Respiratory exam: Present: CTAB - Cardiovascular Cardiovascular exam: Present: RRR, systolic murmur - GI/Abdominal GI/Abdominal exam: Present: normal bowel sounds, soft, no peritoneal signs. Absent: distended, guarding, tenderness - Extremities Exam Extremities exam: Present: pedal edema, warm - Incison Incision: Present: serous (no change) Internal Medicine: Result - Labs CBC & Chem 7: 01/20/17 05:10 01/20/17 05:10 - ABG Interpretation ABG results: PT/INR, D-dimer PT 12.7 Seconds (9.4-12.1) H 01/15/17 05:15 Consult Discharge Plan - Plan Referrals: Alyse Inman MD [Primary Care Provider] -
--- NOTE | 2017-01-26 14:13 | Discharge Summary ---
Date of Encounter: 01/27/17 Time of Encounter: 13:36 - Discharge Diagnosis (1) Status post left hip replacement Priority: Primary Status: Acute Comments: She came to [facility] after having had a left total hip replacement with Carlos at [facility]. She had failed hardware from her prior hip fracture. She was deconditioned she progressed through PT OT and RT she was deemed safe to be at home. She was discharged to her home environment her grandson lives with her and helps take care of her. Walking with a walker. Her pain was controlled. (2) A-fib Priority: Secondary Status: Acute Comments: He was rate controlled during this hospitalization she did have A. fib with RVR down at [facility] where she was started on amiodarone drip and converted to a by mouth amiodarone dose and her dose of by mouth Cardizem was raised from 120 mg to 180 mg she remained rate controlled and a regular rhythm while she was here. She is anticoagulated on eliquis. On recent her daughter to the pharmacy with the pharmacy card. it was not covered it was over $300 a month. She is going to see cardiology tomorrow discussed with her. the risk of thromboembolic events was discussed at length with her.. She wanted to wait until she spoke with Dr Doherty tomorrow. He was sent home on Cardizem aspirin a prescription with eliquis amiodarone Qualifiers: Atrial fibrillation type: paroxysmal Qualified Code(s): I48.0 - Paroxysmal atrial fibrillation (3) Acute blood loss anemia Priority: Secondary Status: Acute Comments: She received 2 units packed red blood cells down at [facility] her hemoglobin has been stable here. sHe has been on by mouth iron. (4) Hypertension Priority: Secondary Status: Chronic Comments: It has been controlled to hypotensive at times she is only on oral Cardizem for this at this point. Qualifiers: Hypertension type: essential hypertension Qualified Code(s): I10 - Essential (primary) hypertension (5) Physical deconditioning Priority: Secondary Status: Chronic Comments: Progressive PT OT and RT met her goals and was considered safe for discharge her home environment with home health care (6) Vitamin D deficiency Priority: Secondary Status: Chronic Comments: Continue on her home medication (7) DVT prophylaxis Priority: Secondary Status: Acute Comments: She was ambulating and she was on ELIQUIS. He did develop a lot of swelling of her left lower extremity after she got home had to drive down to [place] to have follow-up with orthopedic office. A Doppler was done was negative for DVT (8) Edema of left lower extremity Priority: Secondary Status: Acute - Discharge Medications Prescriptions: Amiodarone [Cordarone] 200 mg PO DAILY #30 tablet Apixaban [Eliquis] 5 mg PO BID #60 tablet Diltiazem CD (24hr) [Cardizem CD] 180 mg PO DAILY #30 cap.er.24h Home Medications: Alendronate Sodium [Fosamax] 70 mg PO MADDEN 10/28/16 [History] Ergocalciferol (VITAMIN D2) [Drisdol (50,000 Unit)] 50,000 unit PO Madden@0900 capsule 11/11/16 [Rx] OxyCODONE Immed Rel [Roxicodone 5 MG] 5 - 10 mg PO Q6HR PRN #40 tablet 01/09/17 [Rx] Acetaminophen [Tylenol] 650 mg PO Q4HR PRN #0 tablet 01/14/17 [Rx] Ascorbic Acid [Vitamin C] 500 mg PO BIDWM tablet 01/14/17 [Rx] Aspirin Enteric Coated [Aspirin EC] 81 mg PO DAILY tablet. 01/14/17 [Rx] Diltiazem CD (24hr) [Cardizem CD] 180 mg PO DAILY 01/14/17 [History] Docusate [Colace] 100 mg PO BID capsule 01/14/17 [Rx] Famotidine [Pepcid] 20 mg PO HS tablet 01/14/17 [Rx] Ferrous Sulfate 325 mg PO BIDWM tablet 01/14/17 [Rx] Multivit/Ca/Min/Fe/FA [Thera M Plus] 1 tab PO DAILY tablet 01/14/17 [Rx] OxyCODONE Immed Rel [Roxicodone 5 MG] 5 - 10 mg PO Q6HR PRN #56 tablet 01/14/17 [Rx] OxyCODONE Immed Rel [Roxicodone 5 MG] 5 mg PO Q4HR PRN 7 Days 01/14/17 [Rx] Amiodarone [Cordarone] 200 mg PO DAILY #30 tablet 01/26/17 [Rx] Apixaban [Eliquis] 5 mg PO BID #60 tablet 01/26/17 [Rx] Diltiazem CD (24hr) [Cardizem CD] 180 mg PO DAILY #30 cap.er.24h 01/26/17 [Rx] Allergies/Adverse Reactions: Allergies codeine Adverse Reaction (Verified 01/10/17 14:04) Vomiting Date of admission: 01/14/17 20:29 Primary care physician: Alyse Inman, Consults: 01/14/17 22:47 Consult to Occupational Therapy [CONS] Routine Comment: eval and treat Consult to Physical Therapy [CONS] Routine Comment: eval and treat Consult to Recreational Therapy [CONS] Routine Comment: Consult to Device Repair Technician [CONS] Routine Reason for SW Consult: discharge planning - Patient Status Disposition: Home Health Service Condition: Good Functional capacity at discharge: uses cane/walker Overall status at discharge: patient is progressing back to baseline - Discharge Instructions Instructions: Atrial Fibrillation (DC), Calcium and Osteoporosis (DC), Chronic Hypertension (DC), Anemia (GEN) Follow Up With: Ramesh Gonzalez MD [Partnered Physician] - 02/09/17 4:45 pm Claudia Talamantes CNP [Advanced Practice Nurse] - 01/31/17 1:40 pm Lottie Alicia DO [Partnered Physician] - 01/28/17 11:40 am (appointment at [facility]) - Diet and Activity Activity: ambulate only with your walker Diet: low fat, low cholesterol, low salt diet Interval History: Presented from [facility] after she had a left total hip replacement after a failed hardware from a hip fracture earlier this year. She progressed through her PT OT and RT until she was considered safe for discharge home with home health care and her grandson that lives with her. She is walking with a walker. She will continue PT with home health care. She had A. fib with RVR at [facility] prior to this admission that was rate controlled when she got here on amiodarone and Cardizem. She is anticoagulated on ELIQUIS. This is very expensive was not covered she is going to follow-up with cardiology tomorrow to discuss this. She is aware of the risk of thromboembolic events with not being anticoagulated with atrial fibrillation. She only gets A. fib when she is having surgery. She did not want to start Coumadin at this time. Her pain was controlled with oxycodone although it did occasionally give her some nausea and she did have some emesis with it. She did not have any belly pain she was had a benign exam. She ate well but she did not enjoy a cardiac diet. Develop left lower extremity edema after she had a car trip to [place] to have a postop follow- up a Doppler was done is negative for DVT likely due to the fact that she was wearing a knee brace for chronic knee pain that she has had since she had a fall and broke her hip. Hospital course: Ms. Marte is a 71 year old female - Time Spent with Patient Total time spent providing and/or coordinating discharge services: - Constitutional Vitals: Temp Pulse Resp BP Pulse Ox 98.5 F 74 18 126/62 95 01/26/17 11:46 01/26/17 11:46 01/26/17 11:46 01/26/17 11:46 01/26/17 11:46 General appearance: Present: A&O X 3, pleasant, no acute distress - Head Head exam: Present: atraumatic, normocephalic - Neck Neck exam general surgery: Present: supple, trachea midline. Absent: lymphadenopathy, tenderness - Respiratory Respiratory exam: Present: CTAB - Cardiovascular Cardiovascular exam: Present: RRR, systolic murmur - GI/Abdominal GI/Abdominal exam: Present: normal bowel sounds, soft, no peritoneal signs. Absent: distended, rebound, tenderness - Extremities Exam Extremities exam: Present: normal capillary refill, pedal edema (but improved). Absent: cyanotic - Incison Incision: Present: clean and dry, intact (with brenna still in. nursing to remove prior to d/c) - Skin Skin exam: Present: dry, warm. Absent: rash
--- NOTE | 2017-01-26 14:16 | Physician Discharge Referral ---
Home Health/Hosp Referral Info Transfer to: Home Health Provider in Charge Post Discharge: PCP - Diagnosis (1) Status post left hip replacement Priority: Primary Status: Acute (2) A-fib Priority: Secondary Status: Acute (3) Acute blood loss anemia Priority: Secondary Status: Acute (4) Hypertension Priority: Secondary Status: Chronic (5) Physical deconditioning Priority: Secondary Status: Chronic (6) Vitamin D deficiency Priority: Secondary Status: Chronic (7) DVT prophylaxis Priority: Secondary Status: Acute (8) Edema of left lower extremity Priority: Secondary Status: Acute - Respiratory Orders None Smoking Cessation: Smoking cessation has been advised. For more information, call the [place] Tobacco Quit Line at 6-159-VYNS-NOW. - Diet/Nutrition Diet/Nutrition Orders: Cardiac - Activity Activity Orders: Walker - Services Needed Following services are medically necessary services: Nursing, Home Health Aide, Physical Therapy - Transfer Medications Prescriptions: Amiodarone [Cordarone] 200 mg PO DAILY #30 tablet Apixaban [Eliquis] 5 mg PO BID #60 tablet Diltiazem CD (24hr) [Cardizem CD] 180 mg PO DAILY #30 cap.er.24h Home Medications: Alendronate Sodium [Fosamax] 70 mg PO SHELBY 10/28/16 [History] Ergocalciferol (VITAMIN D2) [Drisdol (50,000 Unit)] 50,000 unit PO Shelby@0900 capsule 11/11/16 [Rx] OxyCODONE Immed Rel [Roxicodone 5 MG] 5 - 10 mg PO Q6HR PRN #40 tablet 01/09/17 [Rx] Acetaminophen [Tylenol] 650 mg PO Q4HR PRN #0 tablet 01/14/17 [Rx] Ascorbic Acid [Vitamin C] 500 mg PO BIDWM tablet 01/14/17 [Rx] Aspirin Enteric Coated [Aspirin EC] 81 mg PO DAILY tablet. 01/14/17 [Rx] Diltiazem CD (24hr) [Cardizem CD] 180 mg PO DAILY 01/14/17 [History] Docusate [Colace] 100 mg PO BID capsule 01/14/17 [Rx] Famotidine [Pepcid] 20 mg PO HS tablet 01/14/17 [Rx] Ferrous Sulfate 325 mg PO BIDWM tablet 01/14/17 [Rx] Multivit/Ca/Min/Fe/FA [Thera M Plus] 1 tab PO DAILY tablet 01/14/17 [Rx] OxyCODONE Immed Rel [Roxicodone 5 MG] 5 - 10 mg PO Q6HR PRN #56 tablet 01/14/17 [Rx] OxyCODONE Immed Rel [Roxicodone 5 MG] 5 mg PO Q4HR PRN 7 Days 01/14/17 [Rx] Amiodarone [Cordarone] 200 mg PO DAILY #30 tablet 01/26/17 [Rx] Apixaban [Eliquis] 5 mg PO BID #60 tablet 01/26/17 [Rx] Diltiazem CD (24hr) [Cardizem CD] 180 mg PO DAILY #30 cap.er.24h 01/26/17 [Rx] Allergies/Adverse Reactions: Allergies codeine Adverse Reaction (Verified 01/10/17 14:04) Vomiting Certification: Further, I certify that my clinical findings support that this patient is homebound (i.e. absences from home require considerable and taxing effort and are for medical reasons or christian services or infrequently or short duration when for other reasons) because: new hip replacement difficult to get ou t of the house. needs walker, limited ambulation Homebound Reason: Patient requires assistance of a person or device to safely leave home Attestation: My signature below is to certify that this patient is under my care and that I, or nurse practitioner, or a physician's commercial assistant working with me, has a face-to -face encounter with this patient.
[2017-01-26] MEDS: *HR* OxyCODONE Immed Rel 5 MG TABLET PO PRN (16:29)
[2017-01-27 07:01] VITALS: BP 110/61
[2017-01-27] MEDS: Diltiazem CD (24hr) 180 MG CAPSULE PO SCH (09:50)
[2017-01-27] MEDS: Ascorbic Acid 500 MG TABLET PO SCH (09:50)
[2017-01-27] MEDS: APIXABAN 5 MG TABLET PO SCH (09:51)
[2017-01-27] MEDS: Aspirin Enteric Coated 81 MG Tablet PO SCH (09:51)
[2017-01-27] MEDS: *HR* Amiodarone 200 MG TABLET PO SCH (09:51)
[2017-01-27] MEDS: Multivit/Ca/Min/Fe/FA 1 TAB TABLET PO SCH (09:51)
[2017-01-27] MEDS: Famotidine 20 MG TABLET PO SCH (09:51)
[2017-01-27] MEDS: *HR* OxyCODONE Immed Rel 5 MG TABLET PO PRN (14:11)
== END 2017-01-27 15:30 | disposition home health service (06) | DRG 560 ==
LOC: INPGRE 20:29
PROVIDERS: ADMIT Family Medicine; ATTEND Family Medicine

== ENCOUNTER 2018-09-11 14:16 | Inpatient (IN) ==
--- NOTE | 2018-09-11 18:33 | Internal Med History&Physical ---
Date of Encounter: 09/11/18 Time of Encounter: 18:31 Assessment and Plan (1) Occult fracture of knee Current visit: Yes Status: Acute She is here for rehabilitation since she is not weightbearing. We will teach her safe transfers and increase her strength that she is safe to go home. (2) A-fib Current visit: Yes Status: Acute She developed A. fib with RVR while at [facility] she was placed on a Cardizem drip. She was weaned to by mouth metoprolol. She was on diltiazem at home but she rarely takes that unless her blood pressure is high. She was on anticoagulation for thrombolytic embolic prophylaxis with the A. fib prior but she stopped taking it. She does not have symptoms she has palpitations or dizziness. Since she is not compliant with medicines and she worries about her blood pressure getting too low. Metoprolol put her back on the diltiazem that she will was not taking prior to admission. Qualifiers: Atrial fibrillation type: paroxysmal Qualified Code(s): I48.0 - Paroxysmal atrial fibrillation (3) DVT prophylaxis Current visit: Yes Status: Acute Lovenox (4) Hypertension Current visit: Yes Status: Chronic She was changed from diltiazem to metoprolol at [facility]. But she was not really taking diltiazem prior to admission her blood pressure to get a little low couple of times in the 90s at [facility] we will change her back to the diltiazem. Qualifiers: Hypertension type: essential hypertension Qualified Code(s): I10 - Essential (primary) hypertension (5) Osteoporosis Current visit: Yes Status: Chronic Will continue her home vitamin D she had a DEXA scan a few years ago with osteoporosis. Qualifiers: Osteoporosis type: unspecified Presence of current pathological fracture: with current pathological fracture Encounter type: sequela Qualified Code(s): M80.00XS - Age-related osteoporosis with current pathological fracture, unspecified site, sequela (6) Physical deconditioning Current visit: Yes Status: Chronic Will consult PT OT RT (7) Vitamin D deficiency Current visit: Yes Status: Chronic Will continue home vitamin D (8) Constipation Current visit: Yes Status: Acute She was started on MiraLAX and senna at [facility] we will continue her on this may need additional medications due to the increased narcotic usage for her doctor. She has not currently uncomfortable Qualifiers: Constipation type: unspecified constipation type Qualified Code(s): K59.00 - Constipation, unspecified Internal Medicine - H&P: HPI Chief complaint: Here for rehabilitation Admitted From: Hospital to Hospital Transfer Plans for Post Hospital Care: Home History of present illness: Ms. Marte is a 73 year old female Who had a fall at home she was walking with her walker a box fell down out of the closet hit her in the head and toppled her over she fell and landed on her left patella and had a left patellar fracture. She was transferred onto [facility] where she was deemed to be nonoperative repair of the patella fracture. She is in a knee immobilizer. She is complete nonweightbearing on the left leg. She was unable to provide care for herself and have safe transfers she was transferred here for rehabilitation to strengthen her and for her to have safe transfers. While there she developed A. fib with RVR she was placed on a Cardizem drip. Then she was placed on oral metoprolol. She will have episodes of A. fib with RVR when ever she goes into the hospital for a fracture or an orthopedic surgery. She has been on diltiazem in the past but she really only takes it at home if her blood pressure gets high she admits. She was on anticoagulation the past but she stopped that. She never feels palpitations she does not feel dizzy she does not have chest pain shortness of breath or cough. She states that when she was at [facility] and on the monitor they came into her room at night and told her that she was having problems with the A. fib. Her pain has been acceptable the left knee is sore but not what is unexpected for an acute fracture. She has had some urinary frequency but denies any dysuria incontinence or hematuria. She has not had a stool for the past 4 days. She does not feel uncomfortable she does not feel bloated she does not have abdominal pain Past Med Surg Social Fam HX - Past Medical History Medical history: arthritis, atrial fibrillation, GERD, hypertension, osteoporosis Additional medical history: Vit B12 def. Vit D deficiency Psychiatric history: no psych history - Past Surgical History Surgical History: , hip replacement ( 2016 after failed OREFT HI), orthopedic, other (127 2016 left hip ORIF after hip fracture. That was revised in January 2017 to a left total hip replacement. She had a left foot and tib-fib fracture that had a external fixator placed and then another repair.) Additional surgical history: left leg surgery, left hip surgery - Social History Smoking Status: Never smoker Smokeless Tobacco Status: No Alcohol use: none Drug use: none Current living situation: Home (Her 2 grandsons and her grandsons girlfriends live with her as well as her daughter off and on.), With Family - Family History Father Living Status: Hx Family Cardiac Disorders: Yes (cad) Hx Family Respiratory Disorders: No Hx Family Cancer: Yes (throat) Hx Family GI Disorders: No Hx Family Endocrine Disorder: No Hx Family Neuromuscular Disorders: No Hx Family Neurologic Disorders: No Hx Family HEENT Disorders: No Hx Family Autoimmune Disorders: No Mother Adopted: No Family Member Ethnicity: Non- Living Status: Hx Family Cardiac Disorders: Yes Hx Family Endocrine Disorder: Yes (dm2) Brother Adopted: No Family Member Ethnicity: Non- Living Status: Still Living Hx Family Cardiac Disorders: No Hx Family Respiratory Disorders: No Hx Family Cancer: Yes (throat) Hx Family GI Disorders: No Hx Family Endocrine Disorder: Yes Hx Family Neuromuscular Disorders: No Hx Family Neurologic Disorders: No Hx Family HEENT Disorders: No Hx Family Autoimmune Disorders: No Sister Adopted: No Family Member Ethnicity: Non- Living Status: Still Living Hx Family Cardiac Disorders: Yes (CAD) Hx Family Respiratory Disorders: No Hx Family Cancer: No Hx Family GI Disorders: No Hx Family Endocrine Disorder: Yes (Osteoporosis) Hx Family Neuromuscular Disorders: No Hx Family Neurologic Disorders: No Hx Family HEENT Disorders: No Hx Family Autoimmune Disorders: No Internal Medicine - H&P: Meds Ergocalciferol (VITAMIN D2) [Drisdol (50,000 Unit)] 50,000 unit PO Shelby@0900 capsule 11/11/16 [Rx] Aspirin Enteric Coated [Aspirin EC] 81 mg PO DAILY tablet. 01/14/17 [Rx] Multivit/Ca/Min/Fe/FA [Thera M Plus] 1 tab PO DAILY tablet 01/14/17 [Rx] Ibuprofen [Ibu] 800 mg PO TID 09/06/18 [History] raNITIdine HCl [Ranitidine HCl] 150 mg PO DAILY 09/06/18 [History] HYDROcodone/Acet 5/325 mg [[place] 5-325 mg] 1 tab PO TID PRN 09/10/18 [History] HYDROcodone/Acet 5/325 mg [[place] 5-325 mg] 1 tab PO Q6H PRN 3 Days #15 tab 09/11/18 [Rx] Metoprolol [Lopressor] 12.5 mg PO BID #60 tablet 09/11/18 [Rx] Polyethylene Glycol 3350 [MiraLAX] 17 gm PO DAILY #30 powd.pack 09/11/18 [Rx] Sennosides/Docusate Sodium [Senna Plus] 1 each PO DAILY #30 tablet 09/11/18 [Rx] Allergy/AdvReac Type Severity Reaction Status Date / Time codeine AdvReac Vomiting Verified 09/10/18 15:53 All Systems PM: A 10-system review of systems was performed and is negative for pertinent findings except as documented above in the HPI. - Constitutional Constitutional: falls, no chills, no fatigue, no fever(s), no weakness - EENT Eyes: no change in vision Nose, mouth and throat: no sore throat - Cardiovascular Cardiovascular ROS IM: no chest pain, no dyspnea, no edema, no lightheadedness, no orthopnea, no palpitations, no syncope - Respiratory Respiratory: no cough, no dyspnea, no wheezing - Gastrointestinal Gastrointestinal: constipation (No stool for the past 4 days. She is on senna and MiraLAX now.), no abdominal pain, no bloating, no cramping, no diarrhea, no loose stools, no melena, no nausea, no vomiting - Genitourinary Genitourinary: urinary frequency, no dysuria, no hematuria, no urinary incontinence, no urinary urgency - Musculoskeletal Musculoskeletal ROS IM: joint swelling (Of the left knee), limited range of motion (Of the left knee), no muscle cramps, no muscle weakness, no numbness - Integumentary Integumentary IM: no erythema, no pruritus, no rash, no jaundice - Neurological Neurological ROS: no dizziness, no focal weakness, no headache(s), no tingling, no other visual disturbances - Constitutional General appearance: Present: A&O X 3, pleasant, no acute distress, answers questions appropriately - Head Head exam: Present: atraumatic, normocephalic - Neck Neck exam general surgery: Present: normal inspection, supple, trachea midline. Absent: lymphadenopathy - Respiratory Respiratory exam: Present: CTAB - Cardiovascular Cardiovascular exam: Present: RRR, +S1, +S2. Absent: systolic murmur - GI/Abdominal GI/Abdominal exam: Present: normal bowel sounds, soft, no peritoneal signs. Absent: diminished bowel sounds, guarding, mass, tenderness - Extremities Exam Extremities exam: Present: warm. Absent: normal capillary refill, pedal edema - Expanded Lower Extremities Exam Lower Leg exam: Present: swelling (Of the left knee.) - Skin Skin exam: Present: dry, warm. Absent: rash
[2018-09-11] MEDS ORDERED: Ibuprofen 800 MG TABLET PO PRN (19:04)
[2018-09-11] MEDS: *HR* HYDROcodone/Acet 5/325 mg TABLET PO PRN (20:12)
[2018-09-11] MEDS: Diltiazem CD (24hr) 180 MG CAPSULE PO SCH (20:12)
[2018-09-11 21:35] LABS: Bilirubin,Urine Negative (Negative); Blood,Urine Small (Negative); Clarity,Urine Slightly Cloudy (Clear); Glucose,Urine (UA) Normal (Normal); Ketones,Urine Negative (Negative); Leukocyte Esterase,Urine Negative (Negative); Nitrite,Urine Negative (Negative); Protein,Urine Negative (Neg-Trace); Urobilinogen,Urine Normal (Normal)
[2018-09-11 21:42] LABS: Color,Urine Yellow (Yellow)
[2018-09-12] MEDS: *HR* HYDROcodone/Acet 5/325 mg TABLET PO PRN ×2 (05:45→14:39)
[2018-09-12] MEDS: *HR* Enoxaparin 40 MG/0.4 ML SYRINGE SQ SCH (05:45)
[2018-09-12 05:57] LABS: Basophils % 0.5 %; Eosinophils # 0.2 K/mcL (0.0-0.6); Hematocrit 38.6 % (35.3-44.9); Immature Granulocytes % 0.3 % (0-4); Lymphocytes # 2.1 K/mcL (0.6-4.6); Lymphocytes % 26.2 %; Mean Corpuscular HGB Conc 32.6 g/dL (31.6-35.5); Mean Corpuscular Hemoglobin 27.6 pg (28.0-33.3); Mean Corpuscular Volume 84.5 fL (83.0-100.0); Mean Platelet Volume 9.4 fL (9.4-12.4); Monocytes # 0.6 K/mcL (0.0-1.3); Monocytes % 7.8 %; Neutrophils # 4.9 K/mcL (1.6-8.9); Platelet Count 270 K/mcL (140-400); Red Blood Count 4.57 M/mcL (3.82-4.97); Red Cell Distribution Width 13.6 % (11.5-14.5); Segmented Neutrophils % 62.2 %
[2018-09-12 06:01] LABS: Hemoglobin 12.6 g/dL (11.5-15.4); INR 1.1; Prothrombin Time 12.2 Seconds (9.4-12.1)
[2018-09-12 06:13] LABS: BUN/Creatinine Ratio 22 (6-26); Blood Urea Nitrogen 14 mg/dL (8-23); Calcium 8.9 mg/dL (8.6-10.3); Carbon Dioxide 30 mEq/L (23-29); Chloride 102 mEq/L (98-107); Glucose 96 mg/dL (70-105); Osmolality,Calculated 284 (280-300); Potassium 4.3 mEq/L (3.5-5.1); Sodium 137 mEq/L (136-145); eGFR For Non-African Americans > 60 (> 60)
[2018-09-12] MEDS: Sennosides/Docusate Sodium TABLET PO SCH (08:16)
[2018-09-12] MEDS: Famotidine 20 MG TABLET PO SCH (08:16)
[2018-09-12] MEDS: Multivit/Ca/Min/Fe/FA 1 TAB TABLET PO SCH (08:16)
[2018-09-12] MEDS: Aspirin Enteric Coated 81 MG Tablet PO SCH (08:16)
[2018-09-12] MEDS: Diltiazem CD (24hr) 180 MG CAPSULE PO SCH (08:16)
[2018-09-12] MEDS: Ondansetron ODT 4 MG TAB.RAPDIS SL PRN (10:34)
--- NOTE | 2018-09-12 16:19 | Internal Med Progress Note ---
Date of Encounter: 09/12/18 Time of Encounter: 16:18 - Assessment and plan (1) Occult fracture of knee Current Visit: Yes Status: Acute Assessment and plan: here for pt/ot/rt to meet goals to be safe to transfer at home. non weight bearing (2) A-fib Current Visit: Yes Status: Acute Assessment and plan: she is on the diltiazem will cont to follow the heart rate Qualifiers: Atrial fibrillation type: paroxysmal Qualified Code(s): I48.0 - Paroxysmal atrial fibrillation (3) DVT prophylaxis Current Visit: Yes Status: Acute Assessment and plan: lovenox (4) Hypertension Current Visit: Yes Status: Chronic Assessment and plan: stable did get low at [facility] on the metoprolol Qualifiers: Hypertension type: essential hypertension Qualified Code(s): I10 - Essential (primary) hypertension (5) Osteoporosis Current Visit: Yes Status: Chronic Qualifiers: Osteoporosis type: unspecified Presence of current pathological fracture: with current pathological fracture Encounter type: sequela Qualified Code(s): M80.00XS - Age-related osteoporosis with current pathological fracture, unspecified site, sequela (6) Physical deconditioning Current Visit: Yes Status: Chronic Assessment and plan: here for pt/ot.rt (7) Vitamin D deficiency Current Visit: Yes Status: Chronic (8) Constipation Current Visit: Yes Status: Acute Assessment and plan: miralax and senna. if not better will consider supp or lactulose does not appear to have an ileus Qualifiers: Constipation type: unspecified constipation type Qualified Code(s): K59.00 - Constipation, unspecified (9) Emesis Current Visit: Yes Status: Acute Assessment and plan: once had zofran feels beter now. she thinks it was because she took the norco on an empty stomach Qualifiers: Vomiting type: unspecified Vomiting Intractability: non-intractable Nausea presence: without nausea Qualified Code(s): R11.11 - Vomiting without nausea - Subjective Interval history: she had an episode of emesis this am. no n now, no abd pain passing gas, no stool yet does not feel bloated. no cp, no sob, no palp, no fever, no dysuria. she did have a zofran today and is tired but no nausea now - Constitutional Vitals: Temp Pulse Resp BP Pulse Ox 98.2 F 80 16 110/66 91 09/12/18 10:00 09/12/18 10:00 09/12/18 10:00 09/12/18 10:00 09/12/18 10:00 General appearance: Present: A&O X 3, pleasant, no acute distress, answers questions appropriately - Head Head exam: Present: atraumatic, normocephalic - Neck Neck exam general surgery: Present: supple, trachea midline. Absent: ly mphadenopathy - Respiratory Respiratory exam: Present: CTAB - Cardiovascular Cardiovascular exam: Present: +S1, +S2. Absent: systolic murmur - GI/Abdominal GI/Abdominal exam: Present: normal bowel sounds, soft, no peritoneal signs. Absent: distended, mass, tenderness - Extremities Exam Extremities exam: Present: normal capillary refill, warm. Absent: pedal edema (but left knee with effusion) - Skin Skin exam: Present: dry, warm. Absent: petechiae Internal Medicine: Result - Labs CBC & Chem 7: 09/12/18 05:50 09/12/18 05:50 Labs: Short CBC 09/12/18 Range/Units 05:50 WBC 7.9 (4.3-11.1) K/mcL Hgb 12.6 D (11.5-15.4) g/dL Hct 38.6 (35.3-44.9) % Plt Count 270 (140-400) K/mcL Neutrophils # 4.9 (1.6-8.9) K/mcL BMP 09/12/18 05:50 Sodium 137 Potassium 4.3 Chloride 102 Carbon Dioxide 30 H BUN 14 Creatinine 0.64 Glucose 96 Calcium 8.9 Urine 09/11/18 Range/Units 19:08 Urine Color Yellow (Yellow) Urine Clarity Slightly Cloudy A (Clear) Urine pH 7.0 (5.0-8.0) pH Units Ur Specific [place] 1.010 (1.010-1.025) Urine Protein Negative (Neg-Trace) mg/dL Urine Glucose (UA) Normal (Normal) mg/dL - ABG Interpretation ABG results: PT/INR, D-dimer PT 12.2 Seconds (9.4-12.1) H 09/12/18 05:50 Consult Discharge Plan - Plan Referrals: Claudia Talamantes, BLOOD BANK CUSTODIAN [Primary Care Provider] -
[2018-09-13] MEDS: Ondansetron ODT 4 MG TAB.RAPDIS SL PRN ×3 (01:33→22:05)
[2018-09-13] MEDS: *HR* HYDROcodone/Acet 5/325 mg TABLET PO PRN ×3 (01:33→22:05)
[2018-09-13] MEDS: *HR* Enoxaparin 40 MG/0.4 ML SYRINGE SQ SCH (06:00)
[2018-09-13] MEDS: Diltiazem CD (24hr) 180 MG CAPSULE PO SCH (08:02)
[2018-09-13] MEDS: Famotidine 20 MG TABLET PO SCH (08:02)
[2018-09-13] MEDS: Sennosides/Docusate Sodium TABLET PO SCH (08:02)
[2018-09-13] MEDS: Aspirin Enteric Coated 81 MG Tablet PO SCH (08:02)
[2018-09-13] MEDS: Multivit/Ca/Min/Fe/FA 1 TAB TABLET PO SCH (08:02)
--- NOTE | 2018-09-13 13:21 | Internal Med Progress Note ---
Date of Encounter: 09/13/18 Time of Encounter: 13:48 - Assessment and plan (1) Occult fracture of knee Current Visit: Yes Status: Acute Assessment and plan: here for pt/ot/rt to meet goals to be safe to transfer at home. non weight bearing (2) A-fib Current Visit: Yes Status: Acute Assessment and plan: she is on the diltiazem will cont to follow the heart rate, she declines anticoagulation. she was on coumadin and elequis prior she will not take she will have just the asa. she is aware of the cva risk Qualifiers: Atrial fibrillation type: paroxysmal Qualified Code(s): I48.0 - Paroxysmal atrial fibrillation (3) DVT prophylaxis Current Visit: Yes Status: Acute Assessment and plan: lovenox (4) Hypertension Current Visit: Yes Status: Chronic Assessment and plan: stable did get low at [place] on the metoprolol Qualifiers: Hypertension type: essential hypertension Qualified Code(s): I10 - Essential (primary) hypertension (5) Osteoporosis Current Visit: Yes Status: Chronic Qualifiers: Osteoporosis type: unspecified Presence of current pathological fracture: with current pathological fracture Encounter type: sequela Qualified Code(s): M80.00XS - Age-related osteoporosis with current pathological fracture, unspecified site, sequela (6) Physical deconditioning Current Visit: Yes Status: Chronic Assessment and plan: here for pt/ot.rt (7) Vitamin D deficiency Current Visit: Yes Status: Chronic (8) Constipation Current Visit: Yes Status: Acute Assessment and plan: miralax and senna. if not better will consider supp or lactulose does not appear to have an ileus Qualifiers: Constipation type: unspecified constipation type Qualified Code(s): K59.00 - Constipation, unspecified (9) Emesis Current Visit: Yes Status: Acute Qualifiers: Vomiting type: unspecified Vomiting Intractability: non-intractable Nausea presence: without nausea Qualified Code(s): R11.11 - Vomiting without nausea - Subjective Interval history: she did have some nausea today no abd pain passing gas, no stool yet does not feel bloated thinks she may go today. no cp, no sob, no palp, no fever, no dysuria. sdoing well weth pt likely d/c home tuesday - Constitutional Vitals: Temp Pulse Resp BP Pulse Ox 97.3 F L 87 18 143/79 96 09/13/18 12:00 09/13/18 12:00 09/13/18 12:00 09/13/18 07:50 09/13/18 12:00 General appearance: Present: A&O X 3, pleasant, no acute distress, answers questions appropriately - Head Head exam: Present: atraumatic, normocephalic - Neck Neck exam general surgery: Present: supple, trachea midline. Absent: lymphadenopathy - Respiratory Respiratory exam: Present: CTAB - Cardiovascular Cardiovascular exam: Present: RRR, +S1, +S2. Absent: systolic murmur - GI/Abdominal GI/Abdominal exam: Present: normal bowel sounds, soft, no peritoneal signs. Absent: guarding, tenderness - Extremities Exam Extremities exam: Present: warm (right knee effusion). Absent: pedal edema - Skin Skin exam: Present: dry, warm. Absent: rash Internal Medicine: Result - Labs CBC & Chem 7: 09/12/18 05:50 09/12/18 05:50 - ABG Interpretation ABG results: PT/INR, D-dimer PT 12.2 Seconds (9.4-12.1) H 09/12/18 05:50 Consult Discharge Plan - Plan Referrals: Claudia Talamantes, [facility] [Primary Care Provider] -
[2018-09-14] MEDS: Sennosides/Docusate Sodium TABLET PO SCH (03:50)
[2018-09-14] MEDS: *HR* Enoxaparin 40 MG/0.4 ML SYRINGE SQ SCH (05:30)
[2018-09-14] MEDS: Ondansetron ODT 4 MG TAB.RAPDIS SL PRN (08:31)
[2018-09-14] MEDS: *HR* HYDROcodone/Acet 5/325 mg TABLET PO PRN (09:37)
[2018-09-14] MEDS: Multivit/Ca/Min/Fe/FA 1 TAB TABLET PO SCH (09:37)
[2018-09-14] MEDS: Aspirin Enteric Coated 81 MG Tablet PO SCH (09:37)
[2018-09-14] MEDS: Diltiazem CD (24hr) 180 MG CAPSULE PO SCH (09:37)
[2018-09-14] MEDS: Famotidine 20 MG TABLET PO SCH (09:38)
--- NOTE | 2018-09-14 12:11 | Internal Med Progress Note ---
Date of Encounter: 09/14/18 Time of Encounter: 12:40 - Assessment and plan (1) Occult fracture of knee Current Visit: Yes Status: Acute Assessment and plan: here for pt/ot/rt to meet goals to be safe to transfer at home. non weight bearing will likely d/c tuesday (2) A-fib Current Visit: Yes Status: Acute Assessment and plan: she is on the diltiazem will cont to follow the heart rate, she declines anticoagulation. she was on coumadin and elequis prior she will not take she will have just the asa. she is aware of the cva risk, she will not take other anticoagulation Qualifiers: Atrial fibrillation type: paroxysmal Qualified Code(s): I48.0 - Paroxysmal atrial fibrillation (3) DVT prophylaxis Current Visit: Yes Status: Acute Assessment and plan: lovenox (4) Hypertension Current Visit: Yes Status: Chronic Assessment and plan: stable did get low at [place] on the metoprolol that was d/c and bp stable on the cardizem now Qualifiers: Hypertension type: essential hypertension Qualified Code(s): I10 - Essential (primary) hypertension (5) Osteoporosis Current Visit: Yes Status: Chronic Qualifiers: Osteoporosis type: unspecified Presence of current pathological fracture: with current pathological fracture Encounter type: sequela Qualified Code(s): M80.00XS - Age-related osteoporosis with current pathological fracture, unspecified site, sequela (6) Physical deconditioning Current Visit: Yes Status: Chronic Assessment and plan: here for pt/ot.rt, will send home with home health to get home pt. her home is wheelchair friendly. (7) Vitamin D deficiency Current Visit: Yes Status: Chronic (8) Constipation Current Visit: Yes Status: Acute Assessment and plan: miralax and senna. she had 2 stools today and is better declines additional medication for this Qualifiers: Constipation type: unspecified constipation type Qualified Code(s): K59.00 - Constipation, unspecified (9) Emesis Current Visit: Yes Status: Acute Assessment and plan: had zofran again this morning. feels beter now. she thinks it was because she took the norco on an empty stomach Qualifiers: Vomiting type: unspecified Vomiting Intractability: non-intractable Nausea presence: without nausea Qualified Code(s): R11.11 - Vomiting without nausea - Subjective Interval history: she did have some nausea today did take one zofran. no emesis. ate a little bit of lunch. no abd pain passing gas, she has had several stools now.. no cp, no sob, no palp, no fever, no dysuria. she is doing well with transfers pt likely d/c home tuesday - Constitutional Vitals: Temp Pulse Resp BP Pulse Ox 98.5 F 87 16 120/73 93 09/14/18 08:00 09/14/18 08:00 09/14/18 08:00 09/14/18 08:00 09/14/18 08:00 General appearance: Present: A&O X 3, pleasant, no acute distress, answers questions appropriately - Head Head exam: Present: atraumatic, normocephalic - Neck Neck exam general surgery: Present: supple, trachea midline. Absent: lymph adenopathy - Respiratory Respiratory exam: Present: CTAB - Cardiovascular Cardiovascular exam: Present: RRR, +S1, +S2. Absent: systolic murmur - GI/Abdominal GI/Abdominal exam: Present: normal bowel sounds, soft, no peritoneal signs. Absent: distended, mass, tenderness - Extremities Exam Extremities exam: Present: normal capillary refill (edema of the left knee effusion. in immobilizer). Absent: pedal edema - Skin Skin exam: Present: dry, warm. Absent: rash Internal Medicine: Result - Labs CBC & Chem 7: 09/12/18 05:50 09/12/18 05:50 - ABG Interpretation ABG results: PT/INR, D-dimer PT 12.2 Seconds (9.4-12.1) H 09/12/18 05:50 Consult Discharge Plan - Plan Instructions: Atrial Fibrillation (DC) Referrals: Claudia Talamantes CNP [Primary Care Provider] - 09/19/18 1:40 pm Prescriptions: Diltiazem CD (24hr) [Cardizem CD] 180 mg PO DAILY #30 cap.er.24h
--- NOTE | 2018-09-14 17:32 | Physician Discharge Referral ---
Home Health/Hosp Referral Info Transfer to: Home Health - Diagnosis (1) Occult fracture of knee Priority: Primary Status: Acute (2) A-fib Priority: Secondary Status: Acute (3) DVT prophylaxis Priority: Secondary Status: Acute (4) Hypertension Priority: Secondary Status: Chronic (5) Osteoporosis Priority: Secondary Status: Chronic (6) Physical deconditioning Priority: Secondary Status: Chronic (7) Vitamin D deficiency Priority: Secondary Status: Chronic (8) Constipation Priority: Secondary Status: Acute (9) Emesis Priority: Secondary Status: Acute - Respiratory Orders Smoking Cessation: Smoking cessation has been advised. For more information, call the [place] Tobacco Quit Line at 6-904-WBSG-NOW. - Transfer Medications Home Medications: Ergocalciferol (VITAMIN D2) [Drisdol (50,000 Unit)] 50,000 unit PO Shelby@0900 c apsule 11/11/16 [Rx] Aspirin Enteric Coated [Aspirin EC] 81 mg PO DAILY tablet. 01/14/17 [Rx] Multivit/Ca/Min/Fe/FA [Thera M Plus] 1 tab PO DAILY tablet 01/14/17 [Rx] Ibuprofen [Ibu] 800 mg PO TID 09/06/18 [History] raNITIdine HCl [Ranitidine HCl] 150 mg PO DAILY 09/06/18 [History] HYDROcodone/Acet 5/325 mg [[place] 5-325 mg] 1 tab PO TID PRN 09/10/18 [History] Metoprolol [Lopressor] 12.5 mg PO BID #60 tablet 09/11/18 [Rx] Polyethylene Glycol 3350 [MiraLAX] 17 gm PO DAILY #30 powd.pack 09/11/18 [Rx] Sennosides/Docusate Sodium [Senna Plus] 1 each PO DAILY #30 tablet 09/11/18 [Rx] Allergies/Adverse Reactions: Allergy/AdvReac Type Severity Reaction Status Date / Time codeine AdvReac Vomiting Verified 09/10/18 15:53 Certification: Further, I certify that my clinical findings support that this patient is homebound (i.e. absences from home require considerable and taxing effort and are for medical reasons or denominational services or infrequently or short duration when for other reasons) because: fracture o fthe left knee with immobilizer unable to drive. Homebound Reason: Patient requires assistance of a person or device to safely leave home, Leaving home requires considerable and taxing effort due to condition Attestation: My signature below is to certify that this patient is under my care and that I, or nurse practitioner, or a physician's medical record assistant working with me, has a [id number] encounter with this patient.
--- NOTE | 2018-09-14 17:34 | Discharge Summary ---
Orders not resulted at time of discharge: Pending orders 10/09/18 04:00 Basic Metabolic Panel MO Complete Blood Count [HEME] MO 10/16/18 04:00 Basic Metabolic Panel MO Complete Blood Count [HEME] MO 10/23/18 04:00 Basic Metabolic Panel MO Complete Blood Count [HEME] MO 10/30/18 04:00 Basic Metabolic Panel MO Complete Blood Count [HEME] MO 11/06/18 04:00 Basic Metabolic Panel MO Complete Blood Count [HEME] MO 09/18/18 04:00 Basic Metabolic Panel MO Complete Blood Count [HEME] MO 09/25/18 04:00 Basic Metabolic Panel MO Complete Blood Count [HEME] MO 10/02/18 04:00 Basic Metabolic Panel MO Complete Blood Count [HEME] MO Date of Encounter: 09/15/18 Time of Encounter: 11:26 - Discharge Diagnosis (1) Occult fracture of knee Priority: Primary Status: Acute Comments: sHe was here for PT OT and RT. She did progress to meet her goals which was felt safe to go home. She lives with her grandchildren they will be available to help care for her. We will arrange for home health will arrange for home PT come out continue doing exercises to strengthen her. She is nonweightbearing and she does pretty well with transfers being nonweightbearing (2) A-fib Priority: Secondary Status: Acute Comments: sHe was on metoprolol at [facility]. after blood pressure low she was changed to diltiazem and she took in the past . her blood pressure to remain stable on this. Her heart rate remained in range. We discussed at length anticoagulation to prevent thromboembolic disease. in the past she has been on Coumadin and eliquis. His expensive that is how she got from the Coumadin she did not like the blood draw she stopped it discussed the risk of CVA discussed the risk of arterial occlusion. She states she knows the risk and she declines to do anything be on an aspirin at this time Qualifiers: Atrial fibrillation type: paroxysmal Qualified Code(s): I48.0 - Paroxysmal atrial fibrillation (3) DVT prophylaxis Priority: Secondary Status: Acute Comments: sHe was on Lovenox while an inpatient (4) Hypertension Priority: Secondary Status: Chronic Comments: Blood pressure did get low at [facility] when she was on the metoprolol it is fine on the current diltiazem will continue that at home as an outpatient. Qualifiers: Hypertension type: essential hypertension Qualified Code(s): I10 - Essential (primary) hypertension (5) Osteoporosis Priority: Secondary Status: Chronic Qualifiers: Osteoporosis type: unspecified Presence of current pathological fracture: with current pathological fracture Encounter type: sequela Qualified Code(s): M80.00XS - Age-related osteoporosis with current pathological fracture, unspecified site, sequela (6) Physical deconditioning Priority: Secondary Status: Chronic Comments: She had PT OT RT here she did progress to medicine goals was felt to go home and discharged home (7) Vitamin D deficiency Priority: Secondary Status: Chronic (8) Constipation Priority: Secondary Status: Acute Comments: She did have MiraLAX and senna. Eventually it did get better she had several bowel movements before discharge. We will continue this at home on an outpatient basis. She declined anything else for constipation Qualifiers: Constipation type: unspecified constipation type Qualified Code(s): K59.00 - Constipation, unspecified (9) Emesis Priority: Secondary Status: Acute Comments: she did Have an episode of emesis receive Zofran. She that is related taking Stephenson on an empty stomach. There was noted was she was nauseated but did not have any emesis she did receive another Zofran on that day. Her abdomen was benign in exam she did not have any belly pain. She did have bowel movements. Qualifiers: Vomiting type: unspecified Vomiting Intractability: non-intractable Nausea presence: without nausea Qualified Code(s): R11.11 - Vomiting without nausea Hospital course: Ms. Marte is a 73 year old female Who had a left occult knee fracture. She was transferred here from [facility] for rehabilitation. She had PT OT and RT eval and treatment. She progressed through her goals she was considered safe for discharge. She is nonweightbearing on the left leg. She will be following up with Ortho-as an outpatient. She will get home health physical therapy as an outpatient. She has an episode of A. fib with RVR at [facility]. She was on Cardizem drip tear. She was started on metoprolol there. Her blood pressure did get low. Metoprolol was changed to diltiazem by mouth. Her heart rate has remains regular she has had a normal right her blood pressures have been stable. She will be discharged home on the diltiazem. She was not very good at taking it always at home she says the only time she gets that A. fib is when she is in the hospital. Discussed anticoagulation she has been on Coumadin in the past she has been on reliquis in the past and there were too many blood draws in the were too expensive. Discussed several times the risk of thromboembolic events not being anticoagulated with A. fib. She is aware of the risks she says that she will only take aspirin for this. She does have frequent falls with fractures so perhaps full anticoagulation would not be the best for her due to her risk of falls as well. He had some constipation while she was here she did receive MiraLAX and senna. At discharge she was having several stools she was doing well. Her pain level was controlled. He has a prescription for Stephenson from [facility] and she will be sent home with that. Did have an episode of emesis she did receive Zofran she was nauseated the next day. That did resolve when she was doing pretty well but attending she went home. She was discharged home in a stable condition she will follow-up with leesa and Livier Talamantes nurse practitioner in the office Discharge discussed with: patient, nurse, social work - Time Spent with Patient Total time spent providing and/or coordinating discharge services: - Discharge Medications Prescriptions: Diltiazem CD (24hr) [Cardizem CD] 180 mg PO DAILY #30 cap.er.24h Home Medications: Ergocalciferol (VITAMIN D2) [Drisdol (50,000 Unit)] 50,000 unit PO Shelby@0900 capsule 11/11/16 [Rx] Aspirin Enteric Coated [Aspirin EC] 81 mg PO DAILY tablet. 01/14/17 [Rx] Multivit/Ca/Min/Fe/FA [Thera M Plus] 1 tab PO DAILY tablet 01/14/17 [Rx] Ibuprofen [Ibu] 800 mg PO TID 09/06/18 [History] raNITIdine HCl [Ranitidine HCl] 150 mg PO DAILY 09/06/18 [History] HYDROcodone/Acet 5/325 mg [[place] 5-325 mg] 1 tab PO TID PRN 09/10/18 [History] Polyethylene Glycol 3350 [MiraLAX] 17 gm PO DAILY #30 powd.pack 09/11/18 [Rx] Sennosides/Docusate Sodium [Senna Plus] 1 each PO DAILY #30 tablet 09/11/18 [Rx] Diltiazem CD (24hr) [Cardizem CD] 180 mg PO DAILY #30 cap.er.24h 09/14/18 [Rx] HYDROcodone/Acet 5/325 mg [[place] 5-325 mg] 1 tab PO Q6H PRN tablet 09/14/18 [Rx] Allergies/Adverse Reactions: Allergy/AdvReac Type Severity Reaction Status Date / Time codeine AdvReac Vomiting Verified 09/10/18 15:53 Date of admission: 09/11/18 18:04 Primary care physician: Claudia Talamantes CNP Consults: 09/11/18 18:54 Consult to Occupational Therapy [CONS] Routine Comment: Evaluate, develop and implement POC Reason for Consult: Nondisplaced fracture Does patient have active BEDREST order?: No Is patient medically & hemodynamically stable?: Yes Consult to Physical Therapy [CONS] Routine Comment: Evaluate, develop and implement POC Reason for Consult: Nondisplaced fracture Does patient have active BEDREST order?: No Is patient medically & hemodynamically stable?: Yes Consult to Recreational Therapy [CONS] Routine Comment: Evaluate, develop and implement POC Consult to Fitness Centre Manager [CONS] Routine Reason for SW Consult: Nondisplaced fracture - Constitutional Vitals: Temp Pulse Resp BP Pulse Ox 98.5 F 87 16 120/73 93 09/14/18 08:00 09/14/18 08:00 09/14/18 08:00 09/14/18 08:00 09/14/18 08:00 General appearance: Present: A&O X 3, pleasant, no acute distress, answers questions appropriately - Head Head exam: Present: atraumatic, normocephalic - Neck Neck exam general surgery: Present: supple, trachea midline. Absent: lymphadenopathy - Respiratory Respiratory exam: Present: CTAB - Cardiovascular Cardiovascular exam: Present: RRR, +S1, +S2. Absent: systolic murmur - GI/Abdominal GI/Abdominal exam: Present: normal bowel sounds, soft, no peritoneal signs. Absent: guarding, splenomegaly, tenderness - Extremities Exam Extremities exam: Absent: pedal edema (decreased edema of the left knee) - Skin Skin exam: Present: dry, warm. Absent: rash - Patient Status Disposition: Home Health Service Condition: Good Functional capacity at discharge: uses cane/walker Overall status at discharge: patient is progressing back to baseline - Discharge Instructions Instructions: Atrial Fibrillation (DC) Follow Up With: Claudia Talamantes CNP [Primary Care Provider] - 09/19/18 1:40 pm - Diet and Activity Activity: ambulate only with your walker, as per physical therapy, other (do not bear weight on the left leg) Diet: low fat, low cholesterol, low salt diet
[2018-09-15] MEDS: *HR* HYDROcodone/Acet 5/325 mg TABLET PO PRN ×2 (00:05→12:39)
[2018-09-15] MEDS: Ondansetron ODT 4 MG TAB.RAPDIS SL PRN ×2 (00:06→08:22)
[2018-09-15] MEDS: *HR* Enoxaparin 40 MG/0.4 ML SYRINGE SQ SCH (05:55)
[2018-09-15 07:47] VITALS: BP 109/56
[2018-09-15] MEDS: Aspirin Enteric Coated 81 MG Tablet PO SCH (08:22)
[2018-09-15] MEDS: Famotidine 20 MG TABLET PO SCH (08:22)
[2018-09-15] MEDS: Sennosides/Docusate Sodium TABLET PO SCH (08:22)
[2018-09-15] MEDS: Multivit/Ca/Min/Fe/FA 1 TAB TABLET PO SCH (08:22)
[2018-09-15] MEDS: Diltiazem CD (24hr) 180 MG CAPSULE PO SCH (08:22)
== END 2018-09-15 15:30 | disposition home health service (06) | DRG 561 ==
LOC: INPGRE 18:04
PROVIDERS: ADMIT Family Medicine; ATTEND Family Medicine